=== PATIENT | female | born 1960 | race Caucasian/White ===

== ENCOUNTER 2019-08-08 15:44 | Emergency (ER) | payer OTHER, SELFPAY ==
[2019-08-08 15:58] VITALS: BP 182/69; PULSE 76; RESP 16; TEMP 36.3; O2SAT 98; BMI 23.1
[2019-08-08 17:05] VITALS: BP 176/109; PULSE 67; RESP 12; O2SAT 99
[2019-08-08 17:09] LABS: Bacteria Urine Moderate (10-30); Culture Indicated Urine Cult Not Indicated; RBC Urine 0-1/HPF (0-5/HPF); Squamous Epithelial Cell Urine 5-10 /HPF (0-5/HPF); WBC Urine 0-1/HPF (0-5/HPF)
[2019-08-08 17:10] LABS: Add Manual Diff / Slide Review NO; Basophils Absolute Auto 0 /uL (0-100); Basophils Percent Auto 0.3 % (0-2); Eosinophils Absolute Auto 100 /uL (0-450); Eosinophils Percent Auto 0.9 % (2-4); Hematocrit 40.2 % (36-46); Hemoglobin 14.1 g/dL (12.0-16.0); Lymphocytes Absolute Auto 1300 /uL (1100-4500); Lymphocytes Percent Auto 17.3 % (25-40); Mean Corpuscular HGB Conc 35.1 % (30-36); Mean Corpuscular Hemoglobin 34.4 PG (26-34); Mean Corpuscular Volume 97.9 fL (80-100); Monocytes Absolute Auto 600 /uL (0-900); Monocytes Percent Auto 8.7 % (3-14); Neutrophils Absolute Auto 5400 /uL (1500-7000); Neutrophils Percent Auto 72.8 % (50-75); Platelet Count 129 X10^3/uL (150-400); Red Blood Cell Count 4.11 X10^6/uL (4.0-5.2); Red Cell Distribution Width 13.9 % (11.6-14.8); White Blood Cell Count 7.4 X10^3/uL (4.5-11.0)
--- NOTE | 2019-08-08 17:11 | ED.ABDPAIN ---
HPI - Abdominal Pain <Lorrie Ivey PA-C - Last Filed: 08/08/19 21:09> General Chief Complaint: Abdominal Pain Stated Complaint: ABD PAIN Time Seen by Provider: 08/08/19 16:32 Source: patient Mode of arrival: Ambulatory Limitations: no limitations History of Present Illness HPI narrative: This 58-year-old female comes to ED at the insistence of her due to worsening left lower quadrant pain. she states that she has had intermittent left-sided pain for about a month that just seems to wax and wane on its own, however yesterday towards the end of the day at work this got a lot worse and continued to worsen last night after she got home. She states that she did not eat dinner, did not sleep well due to the pain. She states that it was somewhat less severe this morning and overall is less severe than yesterday but again has worsened somewhat throughout the day. She has not eaten since lunchtime yesterday, states she does not have nausea but does not have an appetite. She has not had any vomiting. She denies any fever, chills, or sweats. She denies any chest pain or dyspnea, states she has some mild chronic cough due to vaping the but that is unchanged. She denies any urinary symptoms or hematuria. She denies any bowel habit change or blood in the stools, thinks her last bowel movement was yesterday. She denies any clear exacerbating or alleviating features. She denies any chronic medical problems aside from untreated HTN as she has not been seen for medical care in a few years. She drinks 2-3 drinks daily, no recent changes. Did have a drink last night. 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 She denies any recent travel or known exposures Related Data Home Medications Medication Instructions Recorded Confirmed No Known Home Medications 08/08/19 08/08/19 Previous Rx's Medication Instructions Recorded amoxicillin-pot clavulanate 1 tab PO BID #20 tab 08/08/19 [Augmentin] Allergies Allergy/AdvReac Type Severity Reaction Status Date / Time No Known Drug Allergies Allergy Unverified 08/08/19 15:02 Review of Systems <Lorrie Ivey PA-C - Last Filed: 08/08/19 21:09> Review of Systems ROS Unobtainable: All systems reviewed & are unremarkable except as noted in HPI and below Patient History <Lorrie Ivey PA-C - Last Filed: 08/08/19 21:09> Medical History (Updated 08/08/19 @ 18:35 by Lorrie Ivey PA-C) HTN (hypertension) (Chronic) Surgical History (Updated 08/08/19 @ 17:37 by Lorrie Ivey PA-C) Status post foot surgery (Resolved) Status post hysterectomy (Resolved) Social History Smoking Status: Current every day smoker tobacco type: cigarettes and vaping alcohol intake frequency: 3 or more drinks per day Substance Use Type: does not use Exam <Lorrie Ivey PA-C - Last Filed: 08/08/19 21:09> Narrative Exam Narrative: GENERAL APPEARANCE: Patient sitting comfortably, in no distress. HEENT: PERRL, EOMI, no scleral icterus, normal oropharynx NECK: Supple LUNGS: Clear to auscultation bilaterally. HEART: Rate and rhythm regular, normal S1 and S2, no S3 or S4. ABDOMEN: Soft, nondistended, bowel sounds present x 4 quadrants, no masses palpable, no hepatosplenomegaly. left lower quadrant markedly tender with deep palpation, no guarding or rebound, mild right lower quadrant tenderness without guarding or rebound. No CVAT EXTREMITIES: No edema, no cyanosis DERMATOLOGIC: No jaundice or exanthem NEUROLOGIC: Alert and oriented with normal speech and coordination Initial Vital Signs Initial Vital Signs: Vital Signs Temperature 97.4 F L 08/08/19 15:58 Pulse Rate 76 08/08/19 15:58 Respiratory Rate 16 08/08/19 15:58 Blood Pressure 182/69 H 08/08/19 15:58 Pulse Oximetry 98 08/08/19 15:58 <Tone Link DO - Last Filed: 08/09/19 08:00> Initial Vital Signs Initial Vital Signs: Vital Signs Temperature 97.4 F L 08/08/19 15:58 Pulse Rate 76 08/08/19 15:58 Respiratory Rate 16 08/08/19 15:58 Blood Pressure 182/69 H 08/08/19 15:58 Pulse Oximetry 98 08/08/19 15:58 Course <Lorrie Ivey PA-C - Last Filed: 08/08/19 21:09> Course Additional Information: Patient has not wanted pain medication while here in the department and does not think she will have any problem taking oral medications and fluids. Appears appropriate for outpatient treatment. She does want to be able to have a drink as she is feeling better and would prefer not to take Flagyl, so was prescribed Augmentin. She agreed to return if any acutely worsening symptoms, otherwise she will call locally tomorrow for referral as she should follow up in the next few days. Discussed that she also needs treatment for her known HTN which can be done through primary care as well. Orders Ordered: Discontinued Medications Sodium Chloride (Normal Saline 0.9%) 1,000 mls @ 1,000 mls/hr IV BOLUS ONE Stop: 08/08/19 18:28 Last Infusion: 08/08/19 19:16 Dose: 0 mls/hr [facility] Admin: 08/08/19 17:58 Dose: 1,000 mls/hr Documented by: [facility] Vital Signs Vital signs: Vital Signs - 8 hr 08/08/19 15:58 08/08/19 17:05 08/08/19 18:04 Temperature 97.4 F L Pulse Rate 76 67 76 Respiratory Rate 16 12 19 Blood Pressure 182/69 H Blood Pressure [Left Arm] 176/109 H 186/104 H Pulse Oximetry 98 99 99 08/08/19 19:06 Temperature Pulse Rate 79 Respiratory Rate 18 Blood Pressure Blood Pressure [Left Arm] 187/101 H Pulse Oximetry 100 <Tone Link DO - Last Filed: 08/09/19 08:00> Orders Ordered: Discontinued Medications Sodium Chloride (Normal Saline 0.9%) 1,000 mls @ 1,000 mls/hr IV BOLUS ONE Stop: 08/08/19 18:28 Last Infusion: 08/08/19 19:16 Dose: 0 mls/hr [facility] Admin: 08/08/19 17:58 Dose: 1,000 mls/hr Documented by: [facility] Vital Signs Vital signs: Vital Signs - 8 hr 08/08/19 15:58 08/08/19 17:05 08/08/19 18:04 Temperature 97.4 F L Pulse Rate 76 67 76 Respiratory Rate 16 12 19 Blood Pressure 182/69 H Blood Pressure [Left Arm] 176/109 H 186/104 H Pulse Oximetry 98 99 99 08/08/19 19:06 Temperature Pulse Rate 79 Respiratory Rate 18 Blood Pressure Blood Pressure [Left Arm] 187/101 H Pulse Oximetry 100 MDM - Abdominal Pain <Lorrie Ivey PA-C - Last Filed: 08/08/19 21:09> Lab Data Attestation: I reviewed the patient's lab results. Result diagrams: 08/08/19 17:00 08/08/19 17:00 Labs: Lab Results 08/08/19 08/08/19 08/08/19 Range/Units 16:03 17:00 17:00 WBC 7.4 (4.5-11.0) X10^3/uL RBC 4.11 (4.0-5.2) X10^6/uL Hgb 14.1 (12.0-16.0) g/dL Hct 40.2 (36-46) % MCV 97.9 (80-100) fL MCH 34.4 H (26-34) PG MCHC 35.1 (30-36) % RDW 13.9 (11.6-14.8) % Plt Count 129 L (150-400) X10^3/uL Neut % (Auto) 72.8 (50-75) % Lymph % (Auto) 17.3 L (25-40) % Florence % (Auto) 8.7 (3-14) % Eos % (Auto) 0.9 L (2-4) % Baso % (Auto) 0.3 (0-2) % Neut # (Auto) 5400 (5526-2837) /uL Lymph # (Auto) 1300 (7661-9813) /uL Florence # (Auto) 600 (0-900) /uL Eos # (Auto) 100 (0-450) /uL Baso # (Auto) 0 (0-100) /uL PT 11.3 (10.1-12.7) SECONDS INR 1.0 (0.9-1.3) APTT 30 (26.4-36.2) SECONDS Sodium (137-145) mmol/L Potassium (3.4-5.1) mmol/L Chloride (98-107) mmol/L Carbon Dioxide (22-32) mmol/L BUN (7-17) mg/dL Creatinine (0.52-1.04) mg/dL Estimated GFR (>60) mL/min BUN/Creatinine Ratio (6-22) Glucose (80-110) mg/dL Calcium (8.4-10.2) mg/dL Total Bilirubin (0.2-1.3) mg/dL AST (14-36) IU/L ALT (<35) IU/L Alkaline Phosphatase (38-126) U/L Total Protein (6.3-8.2) g/dL Albumin (3.5-5.0) g/dL Globulin (1.7-4.1) g/dL Albumin/Globulin Ratio (1.0-2.8) Lipase (23-300) U/L Urine RBC 0-1/hpf (0-5/HPF) Urine WBC 0-1/hpf (0-5/HPF) Ur Squamous Epith Cells 5-10 /hpf H (0-5/HPF) Urine Bacteria Moderate (10-30) H (None) Ur Culture Indicated? Cult not indicated 08/08/19 Range/Units 17:00 WBC (4.5-11.0) X10^3/uL RBC (4.0-5.2) X10^6/uL Hgb (12.0-16.0) g/dL Hct (36-46) % MCV (80-100) fL MCH (26-34) PG MCHC (30-36) % RDW (11.6-14.8) % Plt Count (150-400) X10^3/uL Neut % (Auto) (50-75) % Lymph % (Auto) (25-40) % Florence % (Auto) (3-14) % Eos % (Auto) (2-4) % Baso % (Auto) (0-2) % Neut # (Auto) (0586-2246) /uL Lymph # (Auto) (4826-6943) /uL Florence # (Auto) (0-900) /uL Eos # (Auto) (0-450) /uL Baso # (Auto) (0-100) /uL PT (10.1-12.7) SECONDS INR (0.9-1.3) APTT (26.4-36.2) SECONDS Sodium 139 (137-145) mmol/L Potassium 3.9 (3.4-5.1) mmol/L Chloride 104 (98-107) mmol/L Carbon Dioxide 25 (22-32) mmol/L BUN 10 (7-17) mg/dL Creatinine 0.60 (0.52-1.04) mg/dL Estimated GFR > 60.0 (>60) mL/min BUN/Creatinine Ratio 16.7 (6-22) Glucose 88 (80-110) mg/dL Calcium 9.2 (8.4-10.2) mg/dL Total Bilirubin 0.8 (0.2-1.3) mg/dL AST 31 (14-36) IU/L ALT 31 (<35) IU/L Alkaline Phosphatase 82 (38-126) U/L Total Protein 7.6 (6.3-8.2) g/dL Albumin 4.5 (3.5-5.0) g/dL Globulin 3.1 (1.7-4.1) g/dL Albumin/Globulin Ratio 1.5 (1.0-2.8) Lipase 90 (23-300) U/L Urine RBC (0-5/HPF) Urine WBC (0-5/HPF) Ur Squamous Epith Cells (0-5/HPF) Urine Bacteria (None) Ur Culture Indicated? Point of care testing: Urine Dip Bedside Urine Glucose Negative Bedside Urine Bilirubin - Negative Bedside Urine Ketone - Negative Urine Specific [facility] 1.015 Bedside Urine Occult Blood +/- Bedside Urine pH 6.5 Bedside Urine Protein - Negative Bedside Urine Urobilinogen - Negative Bedside Urine Nitrite - Negative Bedside Urine Leukocytes - Negative Esterase Imaging Data CT scan - abdomen: Radiologist's impression: [place] [id number] CT Scan Report Signed Patient: Shadi Young LMR#: [id number] : 9Acct:[id number] Age/Sex: 58 / FDate of Service: 08/08/19 Loc: ED Accession Number: [id number] Procedure: CT abdomen pelvis w con Ordering Provider: Lorrie Ivey P.A-C PROCEDURE: CT ABDOMEN PELVIS W CON INDICATIONS: LLQ pain/anorexia TECHNIQUE: After the administration of intravenous contrast, 5 mm thick sections acquired from the diaphragm to the symphysis. 5 mm coronal and sagittal reformats were acquired. For radiation dose reduction, the following was used: automated exposure control, adjustment of mA and/or kV according to patient size. COMPARISON: [facility], [place], ABDOMEN SONOGRAM, 03/07/2009, 8:04. FINDINGS: Image quality: Excellent. ABDOMEN: Lung bases: Lung bases are clear. Heart size is normal. Solid organs: Liver is normal in size and enhancement. Subcentimeter presumed liver cysts are seen. Gallbladder demonstrates no significant CT abnormality. Biliary system is non dilated. Pancreas enhances normally. Spleen is normal in size and enhancement. No adrenal nodules. Kidneys demonstrate normal size and enhancement, without hydronephrosis. Peritoneum and bowel: There is moderate wall thickening seen involving the distal descending colon and the sigmoid colon, with mild surrounding inflammatory changes. Diverticula formation can be seen within this region. No findings of perforation or abscess can be seen. The bowel loops otherwise demonstrate normal wall thickness and caliber. An elongated yet not inflamed appendix cannot be seen. Nodes and vessels: No retroperitoneal or mesenteric adenopathy by size criteria. Aorta and inferior vena cava are normal in size. Atherosclerotic calcification is noted. Miscellaneous: No ventral hernias. PELVIS: Genitourinary: Bladder wall thickness is normal. This patient is status post hysterectomy. No adnexal masses are seen. Miscellaneous: No inguinal hernias or adenopathy. Bones: No suspicious bony lesions. No vertebral body compression fractures. Degenerative changes are seen throughout, which are most prominent at the L5-S1 level. IMPRESSION: Distal descending colon and sigmoid colon diverticulitis, without findings of perforation or abscess. Incidental note is made of: Presumed subcentimeter cyst involving the liver Elongated, noninflamed appendix Hysterectomy Focal L5-S1 degenerative change Dictated by: Néstor Foster M.D. on 08/08/2019 at 17:00 Approved by: Néstor Foster M.D. on 08/08/2019 at 17:04 <Tone Link DO - Last Filed: 08/09/19 08:00> Lab Data Labs: Lab Results 08/08/19 08/08/19 08/08/19 Range/Units 16:03 17:00 17:00 WBC 7.4 (4.5-11.0) X10^3/uL RBC 4.11 (4.0-5.2) X10^6/uL Hgb 14.1 (12.0-16.0) g/dL Hct 40.2 (36-46) % MCV 97.9 (80-100) fL MCH 34.4 H (26-34) PG MCHC 35.1 (30-36) % RDW 13.9 (11.6-14.8) % Plt Count 129 L (150-400) X10^3/uL Neut % (Auto) 72.8 (50-75) % Lymph % (Auto) 17.3 L (25-40) % Florence % (Auto) 8.7 (3-14) % Eos % (Auto) 0.9 L (2-4) % Baso % (Auto) 0.3 (0-2) % Neut # (Auto) 5400 (2202-9979) /uL Lymph # (Auto) 1300 (6606-4038) /uL Florence # (Auto) 600 (0-900) /uL Eos # (Auto) 100 (0-450) /uL Baso # (Auto) 0 (0-100) /uL PT 11.3 (10.1-12.7) SECONDS INR 1.0 (0.9-1.3) APTT 30 (26.4-36.2) SECONDS Sodium (137-145) mmol/L Potassium (3.4-5.1) mmol/L Chloride (98-107) mmol/L Carbon Dioxide (22-32) mmol/L BUN (7-17) mg/dL Creatinine (0.52-1.04) mg/dL Estimated GFR (>60) mL/min BUN/Creatinine Ratio (6-22) Glucose (80-110) mg/dL Calcium (8.4-10.2) mg/dL Total Bilirubin (0.2-1.3) mg/dL AST (14-36) IU/L ALT (<35) IU/L Alkaline Phosphatase (38-126) U/L Total Protein (6.3-8.2) g/dL Albumin (3.5-5.0) g/dL Globulin (1.7-4.1) g/dL Albumin/Globulin Ratio (1.0-2.8) Lipase (23-300) U/L Urine RBC 0-1/hpf (0-5/HPF) Urine WBC 0-1/hpf (0-5/HPF) Ur Squamous Epith Cells 5-10 /hpf H (0-5/HPF) Urine Bacteria Moderate (10-30) H (None) Ur Culture Indicated? Cult not indicated 08/08/19 Range/Units 17:00 WBC (4.5-11.0) X10^3/uL RBC (4.0-5.2) X10^6/uL Hgb (12.0-16.0) g/dL Hct (36-46) % MCV (80-100) fL MCH (26-34) PG MCHC (30-36) % RDW (11.6-14.8) % Plt Count (150-400) X10^3/uL Neut % (Auto) (50-75) % Lymph % (Auto) (25-40) % Florence % (Auto) (3-14) % Eos % (Auto) (2-4) % Baso % (Auto) (0-2) % Neut # (Auto) (5592-3458) /uL Lymph # (Auto) (6138-8871) /uL Florence # (Auto) (0-900) /uL Eos # (Auto) (0-450) /uL Baso # (Auto) (0-100) /uL PT (10.1-12.7) SECONDS INR (0.9-1.3) APTT (26.4-36.2) SECONDS Sodium 139 (137-145) mmol/L Potassium 3.9 (3.4-5.1) mmol/L Chloride 104 (98-107) mmol/L Carbon Dioxide 25 (22-32) mmol/L BUN 10 (7-17) mg/dL Creatinine 0.60 (0.52-1.04) mg/dL Estimated GFR > 60.0 (>60) mL/min BUN/Creatinine Ratio 16.7 (6-22) Glucose 88 (80-110) mg/dL Calcium 9.2 (8.4-10.2) mg/dL Total Bilirubin 0.8 (0.2-1.3) mg/dL AST 31 (14-36) IU/L ALT 31 (<35) IU/L Alkaline Phosphatase 82 (38-126) U/L Total Protein 7.6 (6.3-8.2) g/dL Albumin 4.5 (3.5-5.0) g/dL Globulin 3.1 (1.7-4.1) g/dL Albumin/Globulin Ratio 1.5 (1.0-2.8) Lipase 90 (23-300) U/L Urine RBC (0-5/HPF) Urine WBC (0-5/HPF) Ur Squamous Epith Cells (0-5/HPF) Urine Bacteria (None) Ur Culture Indicated? Point of care testing: Urine Dip Bedside Urine Glucose Negative Bedside Urine Bilirubin - Negative Bedside Urine Ketone - Negative Urine Specific [facility] 1.015 Bedside Urine Occult Blood +/- Bedside Urine pH 6.5 Bedside Urine Protein - Negative Bedside Urine Urobilinogen - Negative Bedside Urine Nitrite - Negative Bedside Urine Leukocytes - Negative Esterase Discharge Plan Departure Patient Disposition: Home Clinical Impression: Diverticulitis Discharge Date/Time: 08/08/19 19:18 Instructions: DI for Diverticulitis Activity Restrictions/Additional Instructions: Please pick and shovel man the antibiotic and start right away. You can take Tylenol as needed for pain. You can have plenty of clear fluids and broth, and as you start to feel little bit better, add bland foods such as white rice, plain white toast, applesauce, bananas. You can gradually add more bland foods such as chicken noodle soup or plain pasta, or baked potato without the skin as you start feeling better. Keep alcohol to a minimum. As we talked about, you must return to the ED if you have any acutely worsening symptoms or new symptoms such as fever or are not able to keep down oral medicines. Otherwise, please call the hospital health human resources support specialist 1st thing in the morning, at [phone] and let them know we would like to have you follow-up with a new primary care provider this week for your abdominal pain. if they are not able to get you an appointment you may also wish to call [facility] clinic at [phone] as sometimes they are able to help with quicker appointments. Prescriptions: New amoxicillin-pot clavulanate [Augmentin] 875-125 mg tablet 1 tab PO BID Qty: 20 RF: 0 No Action No Known Home Medications RF: 0 Stand Alone Forms: Work Release Note <Tone Link, DO - Last Filed: 08/09/19 08:00> Sign Out Provider Sign Out Attestation: Dr Link Co-Sign Statement: I was available for consultation during this patient's emergency department visit. This chart is signed by myself for administrative purposes only. I did not have direct contact with this patient during this visit. They were seen independently by the APC.
[2019-08-08 17:19] LABS: Prothrombin Time 11.3 SECONDS (10.1-12.7)
[2019-08-08 17:22] LABS: PTT Partial Thromboplastin Tim 30 SECONDS (26.4-36.2)
[2019-08-08 17:23] LABS: Alanine Aminotransferase 31 IU/L (<35); Albumin 4.5 g/dL (3.5-5.0); Albumin Globulin Ratio 1.5 (1.0-2.8); Alkaline Phosphatase 82 U/L (38-126); Aspartate Aminotransferase 31 IU/L (14-36); BUN Creatinine Ratio 16.7 (6-22); Bilirubin Total 0.8 mg/dL (0.2-1.3); Blood Urea Nitrogen 10 mg/dL (7-17); Calcium 9.2 mg/dL (8.4-10.2); Carbon Dioxide 25 mmol/L (22-32); Chloride 104 mmol/L (98-107); Estimated Glomerular Filt Rate > 60.0 mL/min (>60); Globulin 3.1 g/dL (1.7-4.1); Glucose 88 mg/dL (80-110); HEMOLYSIS < 15 (0-50); Lipase 90 U/L (23-300); Potassium 3.9 mmol/L (3.4-5.1); Sodium 139 mmol/L (137-145); Total Protein 7.6 g/dL (6.3-8.2)
--- NOTE | 2019-08-08 17:29 | DI.CT.S_ITS ---
PROCEDURE: CT ABDOMEN PELVIS W CON INDICATIONS: LLQ pain/anorexia TECHNIQUE: After the administration of intravenous contrast, 5 mm thick sections acquired from the diaphragm to the symphysis. 5 mm coronal and sagittal reformats were acquired. For radiation dose reduction, the following was used: automated exposure control, adjustment of mA and/or kV according to patient size. COMPARISON: [facility], [place], ABDOMEN SONOGRAM, 03/07/2009, 8:04. FINDINGS: Image quality: Excellent. ABDOMEN: Lung bases: Lung bases are clear. Heart size is normal. Solid organs: Liver is normal in size and enhancement. Subcentimeter presumed liver cysts are seen. Gallbladder demonstrates no significant CT abnormality. Biliary system is non dilated. Pancreas enhances normally. Spleen is normal in size and enhancement. No adrenal nodules. Kidneys demonstrate normal size and enhancement, without hydronephrosis. Peritoneum and bowel: There is moderate wall thickening seen involving the distal descending colon and the sigmoid colon, with mild surrounding inflammatory changes. Diverticula formation can be seen within this region. No findings of perforation or abscess can be seen. The bowel loops otherwise demonstrate normal wall thickness and caliber. An elongated yet not inflamed appendix cannot be seen. Nodes and vessels: No retroperitoneal or mesenteric adenopathy by size criteria. Aorta and inferior vena cava are normal in size. Atherosclerotic calcification is noted. Miscellaneous: No ventral hernias. PELVIS: Genitourinary: Bladder wall thickness is normal. This patient is status post hysterectomy. No adnexal masses are seen. Miscellaneous: No inguinal hernias or adenopathy. Bones: No suspicious bony lesions. No vertebral body compression fractures. Degenerative changes are seen throughout, which are most prominent at the L5-S1 level. IMPRESSION: Distal descending colon and sigmoid colon diverticulitis, without findings of perforation or abscess. Incidental note is made of: Presumed subcentimeter cyst involving the liver Elongated, noninflamed appendix Hysterectomy Focal L5-S1 degenerative change Dictated by: Néstor Foster M.D. on 08/08/2019 at 17:00 Approved by: Néstor Foster M.D. on 08/08/2019 at 17:04
[2019-08-08] MEDS: SODIUM CHLORIDE 0.9% 1,000 ML 1000 ML IV (17:58)
[2019-08-08 18:04] VITALS: BP 186/104; PULSE 76; RESP 19; O2SAT 99
[2019-08-08 19:06] VITALS: BP 187/101; PULSE 79; RESP 18; O2SAT 100
== END 2019-08-08 19:18 | disposition home or self-care (01) ==
PROVIDERS: Emergency Medicine; Emergency Provider Internal Medicine
DX: K57.92 Diverticulitis of intestine, part unspecified, without perforation or abscess without bleeding (principal)
CPT/HCPCS: 36415; 74177; 80053; 81003; 81015; 83690; 85025; 85610; 85730; 96360; 99283; 99285

== ENCOUNTER → 2019-08-29 11:35 | Outpatient (CLI) | payer OTHER, SELFPAY ==
[2019-08-29 12:01] LABS: Add Manual Diff / Slide Review NO; Basophils Absolute Auto 0 /uL (0-100); Basophils Percent Auto 0.7 % (0-2); Eosinophils Absolute Auto 100 /uL (0-450); Eosinophils Percent Auto 1.6 % (2-4); Hematocrit 41.5 % (36-46); Hemoglobin 14.2 g/dL (12.0-16.0); Lymphocytes Absolute Auto 900 /uL (1100-4500); Lymphocytes Percent Auto 22.1 % (25-40); Mean Corpuscular HGB Conc 34.2 % (30-36); Mean Corpuscular Hemoglobin 34.2 PG (26-34); Monocytes Absolute Auto 400 /uL (0-900); Monocytes Percent Auto 9.5 % (3-14); Neutrophils Absolute Auto 2700 /uL (1500-7000); Neutrophils Percent Auto 66.1 % (50-75); Platelet Count 147 X10^3/uL (150-400); Red Blood Cell Count 4.15 X10^6/uL (4.0-5.2); Red Cell Distribution Width 13.7 % (11.6-14.8); White Blood Cell Count 4.1 X10^3/uL (4.5-11.0)
[2019-08-29 12:14] LABS: Alanine Aminotransferase 26 IU/L (<35); Albumin 4.6 g/dL (3.5-5.0); Albumin Globulin Ratio 1.5 (1.0-2.8); Alkaline Phosphatase 74 U/L (38-126); Aspartate Aminotransferase 36 IU/L (14-36); BUN Creatinine Ratio 23.3 (6-22); Bilirubin Total 0.6 mg/dL (0.2-1.3); Blood Urea Nitrogen 14 mg/dL (7-17); Calcium 9.4 mg/dL (8.4-10.2); Carbon Dioxide 28 mmol/L (22-32); Chloride 104 mmol/L (98-107); Cholesterol 266 mg/dL (140-199); Estimated Glomerular Filt Rate > 60.0 mL/min (>60); Glucose 82 mg/dL (80-110); HDL Cholesterol 91 mg/dL (40-60); HEMOLYSIS < 15 (0-50); LDL Cholesterol Calculated 153 mg/dL (<100); Potassium 4.1 mmol/L (3.4-5.1); Sodium 140 mmol/L (137-145); Total Protein 7.6 g/dL (6.3-8.2); Triglycerides 109 mg/dL (35-150)
[2019-08-29 13:44] LABS: TSH w/ Reflex to FT4 1.08 uIU/mL (0.47-4.68)
[2019-08-29 15:18] LABS: Vitamin D 25 Hydroxy (D3) < 12.8 ng/mL (30.0-100.0)
== END ==
PROVIDERS: PCP Family Medicine; Visit Provider Family Medicine
DX: Z13.29 Encounter for screening for other suspected endocrine disorder (principal); E55.9 Vitamin D deficiency, unspecified; I10 Essential (primary) hypertension
CPT/HCPCS: 36415; 80053; 80061; 82306; 84443; 85025

== ENCOUNTER → 2020-02-20 08:45 | Outpatient (CLI) | payer BC, SELFPAY ==
--- NOTE | 2020-02-20 08:46 | DI.NM.S_ITS ---
PROCEDURE: NM CÉSAR PERF SPECT REST & STR Rest and exercise myocardial perfusion SPECT with gated imaging and ejection fraction RADIOPHARMACEUTICAL: 11.5 mCi Tc-99m sestamibi IV at rest and 25.8 mCi Tc-99m sestamibi IV at peak exercise. A one day-protocol was performed. INDICATIONS: Chest pain TECHNIQUE: Radiopharmaceutical was injected at peak stress test, and also at rest. SPECT images were obtained. SPECT myocardial perfusion images were displayed in short axis, horizontal long axis, and vertical long axis views. Gated images were reviewed using fypio software. COMPARISON: None. CARDIAC STRESS: A standard Jayy treadmill exercise tolerance test was performed by the patient under the supervision of an attending staff. The patient exercised for 2 minutes and 44 seconds; functional aerobic impairment (ANKIT) is +50%. Hemodynamic data: There is normal heart rate response to exercise stress. Hypertension at rest (BP 170/104mmHg) and hypertensive response to exercise (max BP 200/120mmHg). Patient achieved 106% of maximum predicted heart rate at peak exercise. Symptoms: Patient denied chest pain during exercise. EKG: Resting ECG shows sinus rhythm with mild horizontal ST depressions in the inferior leads and non-specific ST changes in the anterolateral leads. No diagnostic EKG changes of ischemia with exercise; no ectopy. FINDINGS: Raw data: There is good myocardial labeling by radiotracer. No significant motion artifacts. Hisb-zx-pzoza ratio is 0.34 (normal is less than 0.38 for sestamibi tracer, and less than 0.50 for thallium tracer). Left ventricle function: Gated images demonstrate normal left ventricle wall thickening. No segmental wall motion abnormality. No transient ischemic dilation; TID is 0.76 (normal less than 1.3). The left ventricle resting end-diastolic volume is 77 mL. Left ventricle stress ejection fraction is 83%; normal values are above 45%. Myocardial perfusion: There is normal distribution of activity in the left and right ventricular myocardium. No fixed or reversible perfusion defects. IMPRESSION: Low risk, normal treadmill nuclear stress study. Hypertension at rest and hypertensive response to exercise. 1) No perfusion evidence of ischemia or infarction. 2) Normal left ventricular size, wall motion, and systolic function (EF post stress 83%). 3) No ECG evidence of ischemia with exercise. 4) No angina during the study. 5) Severely reduced exercise tolerance (4.6 METs, ANKIT +50%). Target heart rate achieved. 6) Hypertension at rest (BP 170/104mmHg) and hypertensive response to exercise (max BP 200/120mmHg). 7) No prior nuclear stress test available for comparison. Dictated by: Brody Gonzalez MD on 02/20/2020 at 16:57 Approved by: Brody Gonzalez MD on 02/20/2020 at 17:01
--- NOTE | 2020-02-20 13:54 | P.PCN_ITS ---
Cardiac Stress Test Report Referral & Results Date Patient Seen: 02/20/20 Time Patient Seen: 13:45 Requesting provider: Christie Majano Indication: Chest pain Rest ECG: Normal sinus rhythm Procedure Note: Today following both written and verbal informed consent the patient was exercised according to a standard Jayy protocol patient went for a total of 2 minutes 44 seconds achieving a maximum heart rate of 169 maximum systolic blood pressure of 200. This is approximately 4.6 METs. Exercise was terminated at this point because of fatigue. Patient was also given Cardiolite through a previously started Hep-Lock IV by the nuclear supervising operator approximately 1 minute prior to the cessation of exercise. Exaggerated heart rate and blood pressure response to exercise. High heart rate and blood pressure at baseline. Slow hemodynamic recovery at rest. No change in rhythm during exercise. Shortness of breath on exertion, but no other signs or symptoms of angina. ST depression in inferior and septal leads, resolving slowly with rest. Marked aerobic impairment (ANKIT +50%). Impression: Abnormal test with significant risk of ischemia. Will await perfusion imaging. Pulmonary disease likely contributing to poor performance. Please note: Actual ECG tracings can be found in the PACS system.
== END ==
PROVIDERS: PCP Family Medicine; Referring Provider Family Medicine; Visit Provider Registered Nurse
DX: R07.89 Other chest pain (principal)
CPT/HCPCS: 78452; 93016; 93017; 93018; A9502

== ENCOUNTER → 2020-03-26 14:50 | Outpatient (CLI) | payer BC, SELFPAY ==
[2020-03-26 20:43] LABS: Cholesterol 267 mg/dL (140-199); HDL Cholesterol 85 mg/dL (40-60); LDL Cholesterol Calculated 165 mg/dL (<100); Triglycerides 87 mg/dL (35-150)
== END ==
PROVIDERS: PCP Family Medicine; Referring Provider Family Medicine; Visit Provider Family Medicine
DX: E78.5 Hyperlipidemia, unspecified (principal)
CPT/HCPCS: 36415; 80061

== ENCOUNTER → 2020-10-03 12:21 | Outpatient (CLI) | payer BC, SELFPAY ==
[2020-10-03 12:52] LABS: Add Manual Diff / Slide Review NO; Basophils Absolute Auto 0 /uL (0-100); Eosinophils Absolute Auto 100 /uL (0-450); Eosinophils Percent Auto 2.7 % (2-4); Hemoglobin 14.5 g/dL (12.0-16.0); Lymphocytes Absolute Auto 1200 /uL (1100-4500); Mean Corpuscular HGB Conc 34.5 % (30-36); Mean Corpuscular Hemoglobin 34.6 PG (26-34); Mean Corpuscular Volume 100.3 fL (80-100); Monocytes Absolute Auto 300 /uL (0-900); Monocytes Percent Auto 8.5 % (3-14); Neutrophils Absolute Auto 2100 /uL (1500-7000); Neutrophils Percent Auto 55.8 % (50-75); Platelet Count 102 X10^3/uL (150-400); Red Blood Cell Count 4.19 X10^6/uL (4.0-5.2); Red Cell Distribution Width 14.2 % (11.6-14.8); White Blood Cell Count 3.7 X10^3/uL (4.5-11.0)
[2020-10-03 13:17] LABS: Alanine Aminotransferase 38 IU/L (<35); Albumin 4.6 g/dL (3.5-5.0); Albumin Globulin Ratio 1.5 (1.0-2.8); Alkaline Phosphatase 83 U/L (38-126); Aspartate Aminotransferase 50 IU/L (14-36); BUN Creatinine Ratio 19.7 (6-22); Bilirubin Total 0.9 mg/dL (0.2-1.3); Blood Urea Nitrogen 15 mg/dL (7-17); Calcium 9.9 mg/dL (8.4-10.2); Carbon Dioxide 27 mmol/L (22-32); Chloride 104 mmol/L (98-107); Cholesterol 241 mg/dL (140-199); Estimated Glomerular Filt Rate > 60.0 mL/min (>60); Globulin 3.1 g/dL (1.7-4.1); Glucose 92 mg/dL (80-110); HEMOLYSIS < 15 (0-50); Potassium 4.2 mmol/L (3.4-5.1); Sodium 136 mmol/L (137-145); Total Protein 7.7 g/dL (6.3-8.2)
[2020-10-03 13:41] LABS: Free T3, Triiodothyronine Free 4.87 pg/mL (2.77-5.27); Free T4, Direct Thyroxine 1.24 ng/dL (0.78-2.19)
[2020-10-03 13:54] LABS: Thyroid Stimulating Hormone 1.46 uIU/mL (0.47-4.68)
[2020-10-03 15:43] LABS: Vitamin D 25 Hydroxy (D3) 54.6 ng/mL (30.0-100.0)
== END ==
PROVIDERS: PCP Family Medicine; Referring Provider Family Medicine; Visit Provider Family Medicine
DX: E56.9 Vitamin deficiency, unspecified (principal); E78.5 Hyperlipidemia, unspecified; I10 Essential (primary) hypertension
CPT/HCPCS: 36415; 80053; 82306; 82465; 84439; 84443; 84481; 85025

== ENCOUNTER → 2020-10-18 15:03 | Outpatient (CLI) | payer BC, SELFPAY ==
[2020-10-18 16:32] LABS: Cholesterol 304 mg/dL (140-199); HDL Cholesterol 108 mg/dL (40-60); LDL Cholesterol Calculated 171 mg/dL (<100); Triglycerides 125 mg/dL (35-150)
== END ==
PROVIDERS: PCP Family Medicine; Referring Provider Family Medicine; Visit Provider Family Medicine
DX: E78.5 Hyperlipidemia, unspecified (principal); I10 Essential (primary) hypertension
CPT/HCPCS: 36415; 80061

== ENCOUNTER → 2020-11-05 14:16 | Outpatient (CLI) | payer BC, SELFPAY ==
--- NOTE | 2020-11-05 14:18 | DI.RAD.S_ITS ---
PROCEDURE: XR LUMBAR SPINE 2-3V INDICATIONS: lower back pain TECHNIQUE: 3 views of the lumbar spine were acquired. COMPARISON: [facility], CR, XR HIP W PEL IF DONE RT 2V, 11/05/2020, 14:25. [facility], CT, CT ABDOMEN PELVIS W CON, 08/08/2019, 17:35. FINDINGS: Bones: 5 [id number]-[id number]-[id number] vertebrae are present. There is normal bony alignment. No vertebral body compression fractures. Probably old fracture of sacrum. No suspicious bony lesions. Mild degenerative disc disease scattered in lumbar spine. Lyijgmbd-qn-[id number] facet arthropathy at L5-S1. Soft tissues: Overlying bowel gas pattern is normal. Extensive aortic and iliac artery calcifications. IMPRESSION: 1. Possible old healed sacral fracture. 2. Mild degenerative disc disease. 3. Txzgbdoi-qs-[id number] facet arthropathy. 4. Severe atherosclerosis. Dictated by: Sonia Hernandez M.D. on 11/05/2020 at 15:55 Approved by: Sonia Hernandez M.D. on 11/05/2020 at 15:59
--- NOTE | 2020-11-05 14:18 | DI.RAD.S_ITS ---
PROCEDURE: XR HIP W PEL IF DONE RT 2V INDICATIONS: lower back pain TECHNIQUE: AP pelvis with lateral view(s) of the right hip(s). COMPARISON: None. FINDINGS: Bones: No fractures or dislocations. Pelvic ring appears intact. No suspicious bony lesions. 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 Degenerative disc and facet disease in the lower lumbar spine. Soft tissues: The visualized bowel gas pattern is normal. There are multiple pelvic phleboliths. 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 Dictated by: Sonia Hernandez M.D. on 11/05/2020 at 17:26 Approved by: Sonia Hernandez M.D. on 11/05/2020 at 17:27
== END ==
PROVIDERS: PCP Family Medicine; Referring Provider Registered Nurse; Visit Provider Registered Nurse
DX: M54.5 Low back pain (principal); M25.551 Pain in right hip; M16.0 Bilateral primary osteoarthritis of hip; M51.36 Other intervertebral disc degeneration, lumbar region; M47.817 Spondylosis without myelopathy or radiculopathy, lumbosacral region; I70.0 Atherosclerosis of aorta; M46.1 Sacroiliitis, not elsewhere classified
CPT/HCPCS: 72100; 73502

== ENCOUNTER → 2020-11-11 15:15 | Outpatient (CLI) | payer BC, SELFPAY | PROVIDERS: PCP Family Medicine; Visit Provider Nurse Practitioner | DX: L02.91 Cutaneous abscess, unspecified (principal) | CPT/HCPCS: 87070; 87075; 87077; 87205 ==

== ENCOUNTER → 2020-12-21 13:56 | Outpatient (CLI) | payer BC, SELFPAY ==
[2020-12-21 14:37] LABS: Appearance Urine UA CLOUDY; Bilirubin Urine UA NEGATIVE (NEGATIVE); Color Urine UA YELLOW; Glucose Urine UA NEGATIVE (Negative); Ketones Urine UA NEGATIVE (NEGATIVE); Leukocyte Esterase Urine UA 3+ (NEGATIVE); Nitrite Urine UA NEGATIVE (Negative); Occult Blood Urine UA TRACE-LYSED (Negative); Protein Urine UA NEGATIVE (Negative); Urobilinogen Urine UA 0.2 E.U./dL (0.2)
[2020-12-21 14:56] LABS: RBC Urine 5-10/HPF (0-5/HPF)
[2020-12-21 14:57] LABS: Bacteria Urine Many (>30); Culture Indicated Urine Specimen Cultured; Squamous Epithelial Cell Urine 1-5 /HPF (0-5/HPF); WBC Urine 30-100/HPF (0-5/HPF)
== END ==
PROVIDERS: PCP Family Medicine; Referring Provider Family Medicine; Visit Provider Family Medicine
DX: R30.0 Dysuria (principal)
CPT/HCPCS: 81001; 87077; 87086; 87186

== ENCOUNTER 2021-07-22 14:35 | Emergency (ER) | payer OTHER, SELFPAY ==
[2021-07-22 14:46] VITALS: BP 255/130; PULSE 89; RESP 18; TEMP 36.6; O2SAT 97
--- NOTE | 2021-07-22 14:50 | DI.RAD.S_ITS ---
PROCEDURE: XR CHEST 1V INDICATIONS: Chest pain TECHNIQUE: One view of the chest was acquired. COMPARISON: None. FINDINGS: Surgical changes and devices: None. Lungs and pleura: Lungs are clear. No pleural effusions or pneumothorax. Mediastinum: Mediastinal contours appear normal. Heart size is normal. Bones and chest wall: No suspicious bony lesions. Overlying soft tissues appear unremarkable. IMPRESSION: No acute cardiopulmonary process demonstrated radiographically. Dictated by: Osmar Calderón M.D. on 07/22/2021 at 16:47 Approved by: Osmar Calderón M.D. on 07/22/2021 at 16:48
[2021-07-22 15:11] LABS: Add Manual Diff / Slide Review NO; Basophils Absolute Auto 100 /uL (0-100); Basophils Percent Auto 1.2 % (0-2); Eosinophils Absolute Auto 0 /uL (0-450); Eosinophils Percent Auto 0.8 % (2-4); Hematocrit 41.9 % (36-46); Hemoglobin 14.7 g/dL (12.0-16.0); Lymphocytes Absolute Auto 1100 /uL (1100-4500); Lymphocytes Percent Auto 25.8 % (25-40); Mean Corpuscular Hemoglobin 36.2 PG (26-34); Mean Corpuscular Volume 103.2 fL (80-100); Monocytes Absolute Auto 400 /uL (0-900); Monocytes Percent Auto 8.4 % (3-14); Neutrophils Absolute Auto 2700 /uL (1500-7000); Neutrophils Percent Auto 63.8 % (50-75); Platelet Count 118 X10^3/uL (150-400); Red Blood Cell Count 4.05 X10^6/uL (4.0-5.2); Red Cell Distribution Width 15.2 % (11.6-14.8); White Blood Cell Count 4.3 X10^3/uL (4.5-11.0)
[2021-07-22 15:19] LABS: Alanine Aminotransferase 48 IU/L (<35); Albumin 4.8 g/dL (3.5-5.0); Albumin Globulin Ratio 1.5 (1.0-2.8); Alkaline Phosphatase 108 U/L (38-126); Aspartate Aminotransferase 79 IU/L (14-36); BUN Creatinine Ratio 16.9 (6-22); Bilirubin Total 0.8 mg/dL (0.2-1.3); Blood Urea Nitrogen 12 mg/dL (7-17); Calcium 10.1 mg/dL (8.4-10.2); Carbon Dioxide 25 mmol/L (22-32); Chloride 103 mmol/L (98-107); Creatine Kinase 38 U/L (30-135); Estimated Glomerular Filt Rate > 60.0 mL/min (>60); Globulin 3.2 g/dL (1.7-4.1); Glucose 82 mg/dL (80-110); HEMOLYSIS < 15 (0-50); Lipase 127 U/L (23-300); Potassium 4.3 mmol/L (3.4-5.1); Sodium 138 mmol/L (137-145)
[2021-07-22 15:31] LABS: Troponin I 0.031 ng/mL (0.01-0.034)
[2021-07-22 16:26] VITALS: BP 233/111; PULSE 77
[2021-07-22] MEDS: LABETALOL 20 MG/4 ML SYRINGE 10 MG IV (16:26)
[2021-07-22 17:00] VITALS: BP 212/105; PULSE 66
[2021-07-22] MEDS: lisinopriL 20 MG TABLET 40 MG PO (17:00)
[2021-07-22] MEDS: PROPRANOLOL ER 60 MG CAPSULE 120 MG PO (17:01)
[2021-07-22 17:44] LABS: Troponin I 0.032 ng/mL (0.01-0.034)
--- NOTE | 2021-07-22 18:33 | ED_ITS ---
HPI - General Adult General Chief complaint: Hypertension Stated complaint: Blood high very high Time Seen by Provider: 07/22/21 18:01 Source: patient Mode of arrival: Ambulatory History of Present Illness HPI narrative: Patient is a 60-year-old female who is here for evaluation of high blood pressure. She has a history of high blood pressure. She ran out of her medications a couple days ago however she states that prior to that it was somewhat sporadic without off and she was taking the medicines. She recently was at a doctor's appointment and a blood pressure was taken and it was elevated. She was told to follow-up with her primary doctor. That was a couple days ago. Today she contacted her primary doctor in order to get a refill of her medications and she was told by the nursing staff there to come to the emergency department. She has no headache. No vision changes. No sore throat. No chest pain. No shortness of breath. No abdominal pain. No nausea vomiting. No lower extremity swelling. No other musculoskeletal complaints. No urinary symptoms Related Data Home Medications Medication Instructions Recorded Confirmed cholecalciferol (vitamin D3) 50 100 mcg PO DAILY cap 10/04/20 01/10/21 mcg (2,000 unit) capsule Previous Rx's Medication Instructions Recorded hydrochlorothiazide 12.5 mg tablet 12.5 mg PO DAILY #30 tab 04/10/20 propranolol 120 mg capsule,24 120 mg PO BID #180 cap 10/04/20 hr,extended release atorvastatin 20 mg tablet 20 mg PO BEDTIME #90 tab 11/22/20 betamethasone dipropionate 0.05 % 1 applic TOP BID PRN #45 gram 01/10/21 topical cream nitrofurantoin macrocrystal 100 mg 100 mg PO BID #10 cap 01/21/21 capsule hydroxyzine HCl 10 mg tablet 10 mg PO TID PRN #90 tab 04/18/21 sertraline 25 mg tablet See Rx Instructions .ROUTE 05/19/21 .COMPLEX #60 tab atorvastatin 20 mg tablet 20 mg PO BEDTIME #30 tab 07/22/21 hydrochlorothiazide 12.5 mg tablet 12.5 mg PO DAILY #30 tab 07/22/21 lisinopril 40 mg tablet 40 mg PO DAILY #30 tab 07/22/21 lisinopril 40 mg tablet 40 mg PO DAILY #30 tab 07/22/21 Allergies Allergy/AdvReac Type Severity Reaction Status Date / Time bupropion Allergy Intermediate hives Verified 01/10/21 10:10 doxycycline AdvReac Intermediate diarrhea Verified 01/10/21 10:10 Review of Systems Constitutional Constitutional: Denies fever(s) and Denies headache(s) Eyes Eyes: Denies change in vision ENT Ears, Nose, Mouth, and Throat: Reports system reviewed and no additional complaints, except as documented, Reports as per HPI and Denies headache(s) Cardiovascular Cardiovascular: Reports as per HPI and Reports system reviewed and no additional complaints, except as documented Respiratory Respiratory: Reports as per HPI and Reports system reviewed and no additional complaints, except as documented Gastrointestinal Gastrointestinal: Reports as per HPI and Reports system reviewed and no additional complaints, except as documented Genitourinary Genitourinary: Reports system reviewed and no additional complaints, except as documented and Reports as per HPI Musculoskeletal Musculoskeletal: Reports system reviewed and no additional complaints, except as documented and Reports as per HPI Integumentary/Breasts Skin/Breast: Reports system reviewed and no additional complaints, except as documented and Reports as per HPI Neurologic Neurologic: Reports system reviewed and no additional complaints, except as documented, Reports as per HPI and Denies headache(s) Psychiatric Psychiatric: Reports system reviewed and no additional complaints, except as documented Endocrine Endocrine: Reports system reviewed and no additional complaints, except as documented Hematologic/Lymphatic Hematologic/Lymphatic: Reports system reviewed and no additional complaints, except as documented On Anticoagulants: No Allergic/Immunologic Allergic/Immunologic: Reports system reviewed and no additional complaints, except as documented Patient History Medical History Anxiety Anxiety and depression Constipation Diverticulosis Eczema (~2018) Foot pain (~1981) Hemorrhoid HTN (hypertension) Hyperlipidemia Low back pain Needs smoking cessation education Osteoarthritis Pelvic somatic dysfunction Seborrheic dermatitis of scalp Segmental and somatic dysfunction of abdomen and other regions Somatic dysfunction of spine, sacral Tobacco abuse disorder Tremor, anxiety related Vision disorder Vitamin deficiency Surgical History Anesthesia History of bunionectomy (~1981) History of carpal tunnel release (~1997) Status post foot surgery Status post hysterectomy (~1989) Family History Mother Cancer Brother Colon cancer Brother Liver cancer Social History Smoking Status: Current every day smoker Tobacco: How many years used: 50 quit status: not considering quitting second hand exposure: No alcohol intake: current substance use type: does not use and former substance user Smoking Status: Current every day smoker tobacco type: cigarettes and vaping alcohol intake frequency: 3 or more drinks per day Substance Use Type: does not use Exam Initial Vital Signs Initial Vital Signs: Vital Signs Temperature 97.8 F 07/22/21 14:46 Pulse Rate 89 07/22/21 14:46 Respiratory Rate 18 07/22/21 14:46 Blood Pressure 255/130 H 07/22/21 14:46 Pulse Oximetry 97 07/22/21 14:46 Const General: cooperative, healthy appearing, comfortable, well developed, well groomed and No acute distress Limitations: mental status not altered HENWV Head: normal to inspection and normocephalic Eyes General: appearance normal, both eyes and all related structures Neck Neck: normal visual inspection and no meningeal signs Chest Chest: normal inspection of the chest Resp Effort & Inspection: normal respiratory effort Auscultation: clear to auscultation bilaterally Cardio Rate: regular rate Rhythm: regular rhythm GI Inspection: normal to inspection and non-distended Palpation: soft Back/Spine/Pelvis Back: normal to inspection Skin General: no rashes or lesions noted Neuro General: patient alert, patient awake, patient oriented x3 and moves all extremities Extrem General: normal to inspection and capillary refill normal Psych Appearance: grossly normal and well kempt Course Orders Ordered: Discontinued Medications Hydralazine HCl (Hydralazine 20 Mg/Ml Vial) 10 mg IV NOW ONE Stop: 07/22/21 18:35 Last Admin: 07/22/21 19:07 Dose: 10 mg Documented by: MARGIE Hydrochlorothiazide (Hydrochlorothiazide 25 Mg Tablet) 25 mg PO NOW ONE Stop: 07/22/21 18:35 Last Admin: 07/22/21 19:07 Dose: 25 mg Documented by: MARGIE Labetalol HCl (Labetalol 20 Mg/4 Ml Syringe) 10 mg IV NOW ONE Stop: 07/22/21 16:18 Last Admin: 07/22/21 16:26 Dose: 10 mg Documented by: MARGIE Lisinopril (Lisinopril 20 Mg Tablet) 40 mg PO NOW ONE Stop: 07/22/21 17:01 Last Admin: 07/22/21 17:00 Dose: 40 mg Documented by: MARGIE Propranolol HCl (Propranolol Er 60 Mg Capsule) 120 mg PO NOW ONE Stop: 07/22/21 17:01 Last Admin: 07/22/21 17:01 Dose: 120 mg Documented by: MARGIE Vital Signs Vital signs: Vital Signs - 8 hr 07/22/21 19:07 07/22/21 20:37 Pulse Rate 64 64 Respiratory Rate 18 Blood Pressure 215/100 H 194/98 H Pulse Oximetry 98 Medical Decision Making Lab Data Lab results reviewed: Yes I reviewed the patient's lab results. Result diagrams: 07/22/21 14:56 07/22/21 14:56 Labs: Lab Results 07/22/21 07/22/21 07/22/21 Range/Units 14:56 14:56 17:01 WBC 4.3 L (4.5-11.0) X10^3/uL RBC 4.05 (4.0-5.2) X10^6/uL Hgb 14.7 (12.0-16.0) g/dL Hct 41.9 (36-46) % MCV 103.2 H (80-100) fL MCH 36.2 H (26-34) PG MCHC 35.0 (30-36) % RDW 15.2 H (11.6-14.8) % Plt Count 118 L (150-400) X10^3/uL Neut % (Auto) 63.8 (50-75) % Lymph % (Auto) 25.8 (25-40) % [place] % (Auto) 8.4 (3-14) % Eos % (Auto) 0.8 L (2-4) % Baso % (Auto) 1.2 (0-2) % Neut # (Auto) 2700 (8611-7815) /uL Lymph # (Auto) 1100 (1089-5663) /uL [place] # (Auto) 400 (0-900) /uL Eos # (Auto) 0 (0-450) /uL Baso # (Auto) 100 (0-100) /uL Sodium 138 (137-145) mmol/L Potassium 4.3 (3.4-5.1) mmol/L Chloride 103 (98-107) mmol/L Carbon Dioxide 25 (22-32) mmol/L BUN 12 (7-17) mg/dL Creatinine 0.71 (0.52-1.04) mg/dL Estimated GFR > 60.0 (>60) mL/min BUN/Creatinine Ratio 16.9 (6-22) Glucose 82 (80-110) mg/dL Calcium 10.1 (8.4-10.2) mg/dL Total Bilirubin 0.8 (0.2-1.3) mg/dL AST 79 H (14-36) IU/L ALT 48 H (<35) IU/L Alkaline Phosphatase 108 (38-126) U/L Total Creatine Kinase 38 (30-135) U/L CK-MB (CK-2) TNP CK-MB (CK-2) Rel Index TNP Troponin I 0.031 0.032 (0.01-0.034) ng/mL Total Protein 8.0 (6.3-8.2) g/dL Albumin 4.8 (3.5-5.0) g/dL Globulin 3.2 (1.7-4.1) g/dL Albumin/Globulin Ratio 1.5 (1.0-2.8) Lipase 127 (23-300) U/L Imaging Data Chest x-ray: Radiologist's Impression: [address] [id number] ReportSigned Patient: Shadi Young LMR#: [id number]: 9Acct:[id number]/Sex: 60 / FDate of Service: 07/22/21Loc: EDAccession Number: [id number] Procedure: XR chest 1V Ordering Provider: Eduardo Haynes D.O. PROCEDURE: XR CHEST 1V INDICATIONS: Chest pain TECHNIQUE: One view of the chest was acquired. COMPARISON: None. FINDINGS: Surgical changes and devices: None. Lungs and pleura: Lungs are clear. No pleural effusions or pneumothorax. Mediastinum: Mediastinal contours appear normal. Heart size is normal. Bones and chest wall: No suspicious bony lesions. Overlying soft tissues appear unremarkable. IMPRESSION: No acute cardiopulmonary process demonstrated radiographically. Dictated by: Osmar Calderón M.D. on 07/22/2021 at 16:47 Approved by: Osmar Calderón M.D. on 07/22/2021 at 16:48 ECG Data Attestation: I personally reviewed and interpreted this ECG as follows: Prior ECG tracings: not available for review Interpretation: Presenting EKG Sinus rhythm Ventricular rate of 79 Normal axis Normal QRS Normal QTC Nonspecific ST T wave changes Repeat EKG Sinus rhythm Ventricular rate is 63 Normal QRS Normal QTC Unchanged from previous EKG MDM Narrative Medical decision making narrative: Patient is asymptomatic. She did have an elevated blood pressure. She has not been on medicines for the past couple days. She was given her home doses of medicine plus additional medicine to control her elevated blood pressure. Her blood pressure did improve with this. There is no signs of heart failure. No signs of ACS. No signs of kidney dysfunction. Low suspicion for intracranial abnormality. Had a long discussion with the patient regarding her blood pressure the importance of taking her medications. I will refill her blood pressure medications that were electronically transmitted to the pharmacy of her choice. She was given return precautions and follow-up instructions. She expressed understanding and agreement. Discharge Plan Departure Patient Disposition: Home Clinical Impression: HTN (hypertension) Instructions: DI for High Blood Pressure Activity Restrictions/Additional Instructions: Your blood pressure was elevated. This is most likely because you have of not been taking your medicines in the past couple days. [facility] Start taking them tomorrow as directed. Contact your primary doctor for follow-up. Return to the emergency department for any new or worsening symptoms Prescriptions: New atorvastatin 20 mg tablet 20 mg PO BEDTIME Qty: 30 RF: 0 hydrochlorothiazide 12.5 mg tablet 12.5 mg PO DAILY Qty: 30 RF: 0 lisinopril 40 mg tablet 40 mg PO DAILY Qty: 30 RF: 0 No Action nitrofurantoin macrocrystal 100 mg capsule 100 mg PO BID Qty: 10 RF: 0 hydroxyzine HCl 10 mg tablet 10 mg PO TID PRN (Reason: anxiety) Qty: 90 RF: 3 sertraline 25 mg tablet See Rx Instructions .ROUTE .COMPLEX Qty: 60 RF: 0 lisinopril 40 mg tablet 40 mg PO DAILY Qty: 30 RF: 0 hydrochlorothiazide 12.5 mg tablet 12.5 mg PO DAILY Qty: 30 RF: 0 betamethasone dipropionate 0.05 % cream 1 applic TOP BID PRN (Reason: rash) Qty: 45 RF: 1 cholecalciferol (vitamin D3) 50 mcg (2,000 unit) capsule 100 mcg PO DAILY RF: 0 propranolol 120 mg capsule,extended release 24 hr 120 mg PO BID Qty: 180 RF: 1 atorvastatin 20 mg tablet 20 mg PO BEDTIME Qty: 90 RF: 1 Referrals: Kali Brumfield DO [Primary Care Provider] -
[2021-07-22 19:07] VITALS: BP 215/100; PULSE 64
[2021-07-22] MEDS: hydroCHLOROthiazide 25 MG TABLET PO (19:07)
[2021-07-22] MEDS: HYDRALAZINE 20 MG/ML VIAL 10 MG IV (19:07)
[2021-07-22 20:37] VITALS: BP 194/98; PULSE 64; RESP 18; O2SAT 98
== END 2021-07-22 19:15 | disposition home or self-care (01) ==
PROVIDERS: Emergency Medicine; Emergency Provider Emergency Medicine; PCP Family Medicine
DX: I10 Essential (primary) hypertension (principal)
CPT/HCPCS: 71045; 80053; 82550; 83690; 84484; 85025; 93005; 96374; 96375; 99284; J0360

== ENCOUNTER → 2021-08-04 15:34 | Outpatient (CLI) | payer OTHER, SELFPAY ==
[2021-08-04 16:54] LABS: Add Manual Diff / Slide Review NO; Basophils Absolute Auto 0 /uL (0-100); Basophils Percent Auto 0.5 % (0-2); Eosinophils Absolute Auto 100 /uL (0-450); Hematocrit 41.5 % (36-46); Hemoglobin 14.4 g/dL (12.0-16.0); Lymphocytes Absolute Auto 2400 /uL (1100-4500); Lymphocytes Percent Auto 44.3 % (25-40); Mean Corpuscular HGB Conc 34.8 % (30-36); Mean Corpuscular Volume 103.6 fL (80-100); Monocytes Absolute Auto 600 /uL (0-900); Monocytes Percent Auto 10.3 % (3-14); Neutrophils Absolute Auto 2400 /uL (1500-7000); Neutrophils Percent Auto 43.9 % (50-75); Platelet Count 157 X10^3/uL (150-400); Red Cell Distribution Width 14.2 % (11.6-14.8); White Blood Cell Count 5.4 X10^3/uL (4.5-11.0)
[2021-08-04 17:15] LABS: Alanine Aminotransferase 47 IU/L (<35); Albumin 4.8 g/dL (3.5-5.0); Albumin Globulin Ratio 1.7 (1.0-2.8); Alkaline Phosphatase 83 U/L (38-126); Aspartate Aminotransferase 60 IU/L (14-36); BUN Creatinine Ratio 15.6 (6-22); Bilirubin Total 0.7 mg/dL (0.2-1.3); Blood Urea Nitrogen 12 mg/dL (7-17); Calcium 9.9 mg/dL (8.4-10.2); Carbon Dioxide 28 mmol/L (22-32); Chloride 90 mmol/L (98-107); Cholesterol 285 mg/dL (140-199); Estimated Glomerular Filt Rate > 60.0 mL/min (>60); Globulin 2.9 g/dL (1.7-4.1); Glucose 77 mg/dL (80-110); HEMOLYSIS < 15 (0-50); Potassium 4.6 mmol/L (3.4-5.1); Sodium 128 mmol/L (137-145); Total Protein 7.7 g/dL (6.3-8.2); Triglycerides 122 mg/dL (35-150)
[2021-08-04 17:22] LABS: HDL Cholesterol 109 mg/dL (40-60); LDL Cholesterol Calculated 152 mg/dL (<100)
== END ==
PROVIDERS: PCP Family Medicine; Referring Provider Family Medicine; Visit Provider Family Medicine
DX: E78.5 Hyperlipidemia, unspecified (principal); I10 Essential (primary) hypertension
CPT/HCPCS: 36415; 80053; 80061; 85025

== ENCOUNTER 2021-10-26 18:36 | Observation (INO) | payer OTHER, SELFPAY ==
[2021-10-26] VITALS (30 sets, daily range): BP systolic 102–201; BP diastolic 55–102; PULSE 53–66; RESP 11–29; TEMP 35.6; O2SAT 82–100
--- NOTE | 2021-10-26 18:39 | DI.RAD.S_ITS ---
PROCEDURE: XR CHEST 1V INDICATIONS: chest pain TECHNIQUE: One view of the chest was acquired. COMPARISON: [facility], CR, XR CHEST 1V, 07/22/2021, 15:56. FINDINGS: Surgical changes and devices: None. Lungs and pleura: Lungs are clear. No pleural effusions or pneumothorax. Mediastinum: Mediastinal contours appear normal. Heart size is normal. Bones and chest wall: No suspicious bony lesions. Overlying soft tissues appear unremarkable. IMPRESSION: No acute cardiopulmonary disease. Dictated by: Sonia Hernandez M.D. on 10/26/2021 at 19:16 Approved by: Sonia Hernandez M.D. on 10/26/2021 at 19:16
--- NOTE | 2021-10-26 18:40 | ED_ITS ---
HPI - Chest Pain General Chief Complaint: Chest Pain Stated Complaint: chest pain Time Seen by Provider: 10/26/21 18:39 History of Present Illness HPI narrative: Patient is a 61-year-old female history of alcohol abuse, hypertension, depression presenting today with sudden onset of left-sided chest pain. reports it started while she was lying down. She is gripping her chest seems to be sharp and stabbing. Not radiating. She has no shortness of breath. He is given aspirin in the ambulance. She has no known history of coronary artery disease. says she drinks daily but is unaware that she drank excessively today. She has been falling a little bit more today. No complaints of pain or injury from fall. Patient is mildly confused but awake alert answering questions with slurring of speech Related Data Previous Rx's Medication Instructions Recorded lisinopril 40 mg tablet 40 mg PO DAILY 90 Days #90 tab 08/27/21 propranolol 120 mg capsule,24 120 mg PO BID #180 cap 08/27/21 hr,extended release betamethasone dipropionate 0.05 % 1 applic TOP BID PRN #45 gram 09/12/21 topical cream hydrochlorothiazide 12.5 mg tablet 12.5 mg PO DAILY #90 tab 09/12/21 escitalopram oxalate 10 mg tablet 30 mg PO DAILY #90 tab 10/15/21 gabapentin 100 mg capsule 400 mg PO TID #120 cap 10/17/21 Allergies Allergy/AdvReac Type Severity Reaction Status Date / Time bupropion Allergy Intermediate hives Verified 10/26/21 18:40 atorvastatin AdvReac Intermediate Gastrointestinal Verified 10/26/21 18:40 Upset doxycycline AdvReac Intermediate diarrhea Verified 10/26/21 18:40 Review of Systems Review of Systems Narrative: GENERAL: Denies chills, fatigue, malaise, fever, sweats, travel HEENT: Denies sinus pain, ear pain, sore throat, difficulty swallowing, neck pain RESPIRATORY: Denies dyspnea, cough, wheezing, hemoptysis, sputum. CARDIOVASCULAR: See HPI GASTROINTESTINAL: Denies nausea, vomiting, abdominal pain, diarrhea, constipation, melena. : Denies dysuria, frequency, incontinence, hematuria, urinary retention, flank pain. MUSCULOSKELETAL: Denies weakness, joint pain, or bony pain SKIN: No rash, no erythema, no pruritus NEUROLOGIC: Denies weakness, dizziness, headache, numbness, change in speech, confusion PSYCHIATRIC: History of depression and alcohol abuse 12 point review of systems is negative except for those stated above and HPI Patient History Medical History Anorexia Anxiety Anxiety and depression Constipation Diverticulosis Eczema (~2018) Fatigue Foot pain (~1981) Hemorrhoid HTN (hypertension) Hyperlipidemia Low back pain Needs smoking cessation education Osteoarthritis Pelvic somatic dysfunction Seborrheic dermatitis of scalp Segmental and somatic dysfunction of abdomen and other regions Somatic dysfunction of spine, sacral Tobacco abuse disorder Tremor, anxiety related Vision disorder Vitamin deficiency Surgical History Anesthesia History of bunionectomy (~1981) History of carpal tunnel release (~1997) Status post foot surgery Status post hysterectomy (~1989) Family History Mother Cancer Brother Colon cancer Brother Liver cancer Social History Smoking Status: Current every day smoker Tobacco: How many years used: 50 quit status: not considering quitting second hand exposure: No alcohol intake: current substance use type: does not use and former substance user Smoking Status: Current every day smoker tobacco type: cigarettes and vaping alcohol intake frequency: 3 or more drinks per day Substance Use Type: does not use Exam Initial Vital Signs Initial Vital Signs: Vital Signs Temperature 96.1 F L 10/26/21 18:37 Pulse Rate 60 10/26/21 18:37 Respiratory Rate 22 10/26/21 18:37 Blood Pressure 201/102 H 10/26/21 18:37 Pulse Oximetry 97 10/26/21 18:37 GENERAL: 61-year-old female is awake alert no acute distress slurring speech, but understandable. Holding left chest seems uncomfortable HEENT: Head atraumatic no depressions crepitations abrasion or sign of injury, pupils reactive, face symmetric, moist mucous membranes CARDIOVASCULAR: Regular rate and rhythm without murmurs, rubs or gallops. RESPIRATORY: Breath sounds equal bilaterally, no wheezes rales or rhonchi. ABDOMEN: Soft, nontender. Normoactive bowel sounds all 4 quadrants. No guarding or rebound. EXTREMITIES: Normal range of motion, no clubbing or edema. Neurovascularly intact NEUROLOGICAL: Alert and oriented x4.Normal gait and speech. SKIN: Warm, dry, no laceration, no petechiae, no rashes or lesions. Course Orders Ordered: ED Orders 10/26/21 18:35 Complete Blood Count AUTO DIFF Stat Comprehensive Metabolic Panel Stat ETOH [Ethanol (ETOH)] Stat Lipase Stat NT-proBNP (BNP-Adult 18+) Stat Partial Thromboplastin Time Stat Prothrombin Time INR Stat Troponin & CK Cardiac Panel Stat 10/26/21 18:39 XR chest 1V Stat EKG-12 Lead Stat 10/26/21 18:53 CT angio chest abdomen pelvis Stat 10/26/21 18:59 CT head/brain wo con Stat 10/26/21 19:36 COVID19 -Nasal swab/Pre-Proc Stat 10/26/21 20:25 Trop I [Troponin I] Stat Acetaminophen (Acetaminophen 325 Mg Tablet) 650 mg PO Q6HR PRN PRN Reason: Fever/Mild Pain (1-3) Aspirin (Aspirin Ec 81 Mg Tablet) 81 mg PO DAILY [facility] Cyclobenzaprine HCl (Cyclobenzaprine 10 Mg Tablet) 10 mg PO TID [facility] Last Admin: 10/26/21 23:10 Dose: 10 mg Documented by: ALPESH Diclofenac Sodium (Diclofenac 1% Gel 100 Gm) 1 applic TOP QID [facility] Last Admin: 10/26/21 23:09 Dose: Not Given Documented by: ALPESH Enoxaparin Sodium (Enoxaparin 40 Mg/0.4 Ml Syringe) 40 mg SUBCUT DAILY [facility] Escitalopram Oxalate (Escitalopram 10 Mg Tablet) 30 mg PO DAILY [facility] Folic Acid (Folic Acid 1 Mg Tablet) 1 mg PO DAILY [facility] Gabapentin (Gabapentin 100 Mg Capsule) 400 mg PO TID [facility] Last Admin: 10/26/21 21:42 Dose: 400 mg Documented by: ALPESH Hydrochlorothiazide (Hydrochlorothiazide 25 Mg Tablet) 12.5 mg PO DAILY [facility] Sodium Chloride (Normal Saline 0.9%) 1,000 mls @ 150 mls/hr IV CONT [facility] Last Admin: 10/26/21 19:03 Dose: 150 mls/hr Documented by: ALPESH Ketorolac Tromethamine (Ketorolac 30 Mg/Ml Vial) 30 mg IV Q6HR PRN PRN Reason: Pain, Severe (7-10) Stop: 10/31/21 21:46 Lisinopril (Lisinopril 20 Mg Tablet) 40 mg PO DAILY [facility] Lorazepam (Lorazepam 2 Mg/Ml Inj) 0 mg IV [id number] PRN; Protocol PRN Reason: Alcohol Withdrawal Morphine Sulfate (Morphine 2 Mg/Ml Inj) 2 mg IV Q5MIN PRN PRN Reason: Chest Pain Multivitamins (Multivitamin 1 Tablet) 1 tab PO DAILY [facility] Naloxone HCl (Naloxone 0.4 Mg/Ml Vial) 0.2 mg IV Q2MIN PRN PRN Reason: Opiate Reversal Nicotine (Nicotine 14 Patch) 14 mg TOP DAILY [facility] Nitroglycerin (Nitroglycerin 0.4 Mg Sl Tab) 0.4 mg SL [id number] PRN PRN Reason: Chest Pain Last Admin: 10/26/21 20:07 Dose: 0.4 mg Documented by: RIAN Nitroglycerin (Nitroglycerin 0.4 Mg Sl Tab) 0.4 mg SL [id number] PRN PRN Reason: Chest Pain Ondansetron HCl (Ondansetron 4 Mg/2 Ml Inj) 4 mg IV Q6HR PRN PRN Reason: Nausea And Vomiting Propranolol HCl (Propranolol Er 60 Mg Capsule) 120 mg PO BID [facility] Last Admin: 10/26/21 21:44 Dose: Not Given Documented by: ALPESH Thiamine HCl (Thiamine 100 Mg Tablet) 100 mg PO DAILY [facility] Stop: 10/30/21 09:01 Discontinued Medications Ketorolac Tromethamine (Ketorolac 30 Mg/Ml Vial) 15 mg IV NOW ONE Stop: 10/26/21 20:02 Last Admin: 10/26/21 20:08 Dose: 15 mg Documented by: RIAN Pantoprazole Sodium (Pantoprazole 40 Mg Vial) 40 mg IV NOW ONE Stop: 10/26/21 20:02 Last Admin: 10/26/21 20:08 Dose: 40 mg Documented by: RIAN Vital Signs Vital signs: Vital Signs - 8 hr 10/26/21 18:37 10/26/21 19:00 10/26/21 19:01 Temperature 96.1 F L Pulse Rate 60 59 L 59 L Respiratory Rate 22 29 H 27 H Blood Pressure 201/102 H 142/81 H Pulse Oximetry 97 95 97 10/26/21 19:05 10/26/21 19:30 10/26/21 19:31 Temperature Pulse Rate 57 L 66 65 Respiratory Rate 25 H 21 Blood Pressure 133/79 145/76 H Pulse Oximetry 96 82 L 95 10/26/21 19:36 10/26/21 19:40 10/26/21 19:45 Temperature Pulse Rate 63 61 58 L Respiratory Rate 20 21 25 H Blood Pressure 143/70 H 150/78 H 142/78 H Pulse Oximetry 94 94 10/26/21 20:00 10/26/21 20:12 10/26/21 20:14 Temperature Pulse Rate 62 56 L Respiratory Rate 24 18 Blood Pressure 142/78 H 108/55 L Pulse Oximetry 95 97 10/26/21 20:15 10/26/21 20:21 10/26/21 20:26 Temperature Pulse Rate 55 L 54 L 53 L Respiratory Rate 20 20 17 Blood Pressure 102/56 L 138/70 130/60 Pulse Oximetry 96 95 97 10/26/21 20:30 10/26/21 20:31 10/26/21 20:35 Temperature Pulse Rate 65 63 60 Respiratory Rate 29 H 23 26 H Blood Pressure 123/60 125/60 Pulse Oximetry 90 L 94 95 10/26/21 20:41 10/26/21 20:46 10/26/21 20:50 Temperature Pulse Rate 55 L 60 58 L Respiratory Rate 24 23 27 H Blood Pressure 143/62 H 154/65 H 141/65 H Pulse Oximetry 94 95 94 10/26/21 20:55 Temperature Pulse Rate 56 L Respiratory Rate 21 Blood Pressure 140/65 Pulse Oximetry 91 MDM - Chest Pain Lab Data Result diagrams: 10/26/21 18:35 10/26/21 18:35 Labs: Lab Results 10/26/21 10/26/21 10/26/21 Range/Units 18:35 18:35 18:35 WBC 6.3 (4.5-11.0) X10^3/uL RBC 4.33 (4.0-5.2) X10^6/uL Hgb 15.9 (12.0-16.0) g/dL Hct 45.0 (36-46) % MCV 103.9 H (80-100) fL MCH 36.7 H (26-34) PG MCHC 35.3 (30-36) % RDW 14.3 (11.6-14.8) % Plt Count 127 L (150-400) X10^3/uL Neut % (Auto) 38.2 L (50-75) % Lymph % (Auto) 50.0 H (25-40) % Ellis % (Auto) 9.9 (3-14) % Eos % (Auto) 1.2 L (2-4) % Baso % (Auto) 0.7 (0-2) % Neut # (Auto) 2400 (9934-9435) /uL Lymph # (Auto) 3100 (5888-9851) /uL Ellis # (Auto) 600 (0-900) /uL Eos # (Auto) 100 (0-450) /uL Baso # (Auto) 0 (0-100) /uL PT 9.8 L (10.1-12.7) SECONDS INR 0.9 (0.9-1.3) APTT 33 (26.4-36.2) SECONDS Sodium 131 L (137-145) mmol/L Potassium 4.9 (3.4-5.1) mmol/L Chloride 93 L (98-107) mmol/L Carbon Dioxide 30 (22-32) mmol/L BUN 10 (7-17) mg/dL Creatinine 0.71 (0.52-1.04) mg/dL Estimated GFR > 60.0 (>60) mL/min BUN/Creatinine Ratio 14.1 (6-22) Glucose 97 (80-110) mg/dL Calcium 9.6 (8.4-10.2) mg/dL Magnesium (1.6-2.3) mg/dL Total Bilirubin 0.6 (0.2-1.3) mg/dL AST 110 H (14-36) IU/L ALT 81 H (<35) IU/L Alkaline Phosphatase 117 (38-126) U/L Total Creatine Kinase 61 (30-135) U/L CK-MB (CK-2) TNP CK-MB (CK-2) Rel Index TNP Troponin I 0.030 (0.01-0.034) ng/mL NT-Pro-B Natriuret Pep 109 (<125) pg/mL Total Protein 8.9 H (6.3-8.2) g/dL Albumin 4.9 (3.5-5.0) g/dL Globulin 4.0 (1.7-4.1) g/dL Albumin/Globulin Ratio 1.2 (1.0-2.8) Lipase 206 (23-300) U/L Ethyl Alcohol 418 H* ( - 10) mg/dL SARS-CoV-2 (PCR) (Negative) 10/26/21 10/26/21 10/26/21 Range/Units 18:38 18:38 19:36 WBC (4.5-11.0) X10^3/uL RBC (4.0-5.2) X10^6/uL Hgb (12.0-16.0) g/dL Hct (36-46) % MCV (80-100) fL MCH (26-34) PG MCHC (30-36) % RDW (11.6-14.8) % Plt Count (150-400) X10^3/uL Neut % (Auto) (50-75) % Lymph % (Auto) (25-40) % Ellis % (Auto) (3-14) % Eos % (Auto) (2-4) % Baso % (Auto) (0-2) % Neut # (Auto) (8765-6348) /uL Lymph # (Auto) (9895-4151) /uL Ellis # (Auto) (0-900) /uL Eos # (Auto) (0-450) /uL Baso # (Auto) (0-100) /uL PT (10.1-12.7) SECONDS INR (0.9-1.3) APTT (26.4-36.2) SECONDS Sodium (137-145) mmol/L Potassium (3.4-5.1) mmol/L Chloride (98-107) mmol/L Carbon Dioxide (22-32) mmol/L BUN (7-17) mg/dL Creatinine (0.52-1.04) mg/dL Estimated GFR (>60) mL/min BUN/Creatinine Ratio (6-22) Glucose (80-110) mg/dL Calcium (8.4-10.2) mg/dL Magnesium 1.7 (1.6-2.3) mg/dL Total Bilirubin (0.2-1.3) mg/dL AST (14-36) IU/L ALT (<35) IU/L Alkaline Phosphatase (38-126) U/L Total Creatine Kinase (30-135) U/L CK-MB (CK-2) CK-MB (CK-2) Rel Index Troponin I (0.01-0.034) ng/mL NT-Pro-B Natriuret Pep Cancelled (<125) pg/mL Total Protein (6.3-8.2) g/dL Albumin (3.5-5.0) g/dL Globulin (1.7-4.1) g/dL Albumin/Globulin Ratio (1.0-2.8) Lipase (23-300) U/L Ethyl Alcohol ( - 10) mg/dL SARS-CoV-2 (PCR) Negative (Negative) 10/26/21 Range/Units 20:25 WBC (4.5-11.0) X10^3/uL RBC (4.0-5.2) X10^6/uL Hgb (12.0-16.0) g/dL Hct (36-46) % MCV (80-100) fL MCH (26-34) PG MCHC (30-36) % RDW (11.6-14.8) % Plt Count (150-400) X10^3/uL Neut % (Auto) (50-75) % Lymph % (Auto) (25-40) % Ellis % (Auto) (3-14) % Eos % (Auto) (2-4) % Baso % (Auto) (0-2) % Neut # (Auto) (4951-4169) /uL Lymph # (Auto) (1019-3291) /uL Ellis # (Auto) (0-900) /uL Eos # (Auto) (0-450) /uL Baso # (Auto) (0-100) /uL PT (10.1-12.7) SECONDS INR (0.9-1.3) APTT (26.4-36.2) SECONDS Sodium (137-145) mmol/L Potassium (3.4-5.1) mmol/L Chloride (98-107) mmol/L Carbon Dioxide (22-32) mmol/L BUN (7-17) mg/dL Creatinine (0.52-1.04) mg/dL Estimated GFR (>60) mL/min BUN/Creatinine Ratio (6-22) Glucose (80-110) mg/dL Calcium (8.4-10.2) mg/dL Magnesium (1.6-2.3) mg/dL Total Bilirubin (0.2-1.3) mg/dL AST (14-36) IU/L ALT (<35) IU/L Alkaline Phosphatase (38-126) U/L Total Creatine Kinase (30-135) U/L CK-MB (CK-2) CK-MB (CK-2) Rel Index Troponin I 0.027 (0.01-0.034) ng/mL NT-Pro-B Natriuret Pep (<125) pg/mL Total Protein (6.3-8.2) g/dL Albumin (3.5-5.0) g/dL Globulin (1.7-4.1) g/dL Albumin/Globulin Ratio (1.0-2.8) Lipase (23-300) U/L Ethyl Alcohol ( - 10) mg/dL SARS-CoV-2 (PCR) (Negative) Urine Dip Bedside Urine Glucose Negative Bedside Urine Bilirubin - Negative Bedside Urine Ketone - Negative Urine Specific [place] 1.010 Bedside Urine Occult Blood - Negative Bedside Urine pH 6.0 Bedside Urine Protein - Negative Bedside Urine Urobilinogen - Negative Bedside Urine Nitrite - Negative Bedside Urine Leukocytes - Negative Esterase ECG Data Interpretation: EKG 1.: Normal sinus rhythm rate 55 MI interval 182 QRS [address] changes or T-wave inversions she is noted to have Q-wave in lead 3 to previous EKG in June 2021 EKG 2. Sinus rhythm rate 60 no changes. [facility] Narrative Medical decision making narrative: Patient is found have severe chest pain hypertension holding left side of her chest. It is non radiating she is given nitroglycerin without any relief she is given morphine so that she can go to CT and quickly rule out dissection. Both head CT and CT angio are negative. PE given is given side stroke I did again does not help she is also given Protonix and Toradol to see if it will help with her pain. She has 2- troponins intact there decreasing and no ischemic changes. CT angio did show atherosclerosis and coronary arteries. Blood pressure has improved in the ER. She is found to be quite intoxicated with an alcohol level of 418 she states she only has 3 drinks daily. At this time she is not showing signs of withdrawal. Due to patient's severe pain is and is coronary artery disease found on CT recommend patient stay for further workup. [place], in ED to see evaluate patient and accepts. Discharge Plan Departure Patient Disposition: Admitted as Observation Clinical Impression: Chest pain Admit Date/Time: 10/26/21 20:59 Admit Provider: Camryn Toscano
[2021-10-26 18:44] LABS: Add Manual Diff / Slide Review NO; Basophils Absolute Auto 0 /uL (0-100); Basophils Percent Auto 0.7 % (0-2); Eosinophils Absolute Auto 100 /uL (0-450); Eosinophils Percent Auto 1.2 % (2-4); Hemoglobin 15.9 g/dL (12.0-16.0); Lymphocytes Absolute Auto 3100 /uL (1100-4500); Mean Corpuscular HGB Conc 35.3 % (30-36); Mean Corpuscular Hemoglobin 36.7 PG (26-34); Mean Corpuscular Volume 103.9 fL (80-100); Monocytes Absolute Auto 600 /uL (0-900); Monocytes Percent Auto 9.9 % (3-14); Neutrophils Absolute Auto 2400 /uL (1500-7000); Neutrophils Percent Auto 38.2 % (50-75); Platelet Count 127 X10^3/uL (150-400); Red Blood Cell Count 4.33 X10^6/uL (4.0-5.2); Red Cell Distribution Width 14.3 % (11.6-14.8); White Blood Cell Count 6.3 X10^3/uL (4.5-11.0)
[2021-10-26 18:51] LABS: INR 0.9 (0.9-1.3); Prothrombin Time 9.8 SECONDS (10.1-12.7)
[2021-10-26] MEDS: NITROGLYCERIN 0.4 MG SL TAB SL ×2 (18:51→20:07)
[2021-10-26 18:53] LABS: PTT Partial Thromboplastin Tim 33 SECONDS (26.4-36.2)
--- NOTE | 2021-10-26 18:53 | DI.CT.S_ITS ---
PROCEDURE: CT ANGIO CHEST ABDOMEN PELVIS INDICATIONS: severe chest pain TECHNIQUE: Precontrast 5 mm thick sections acquired from the lung apices to the iliac crests. After the administration of intravenous contrast, 2.5 mm thick sections again acquired from the lung apices to the iliac crests. Maximum intensity projection (MIP) oblique sagittal and coronal reformats were then acquired. For radiation dose reduction, the following was used: automated exposure control. COMPARISON: [facility], CT, CT ABDOMEN PELVIS W CON, 08/08/2019, 17:35. [facility], CR, XR CHEST 1V, 10/26/2021, 18:43. FINDINGS: Image quality: Excellent. AORTA: Normal caliber. No aneurysm or dissection. [id number] atherosclerosis. CHEST: Lungs and pleura: Mild emphysema. No acute airspace opacities. No pleural effusions or pneumothorax. Central and peripheral airways are patent and normal in caliber. Small lung nodules are present. Nodule 1: 3 mm; right upper lobe; series 13, image 32; solid. Nodule 2: 2 mm; right upper lobe; series 13 image 56; solid. Nodule 3: 1 mm; left upper lobe; series 13, image 23; solid. Mediastinum: Heart size is mildly increased. Moderate coronary artery calcification. No pericardial effusion. No mediastinal or hilar adenopathy by size criteria. Central pulmonary arteries are normal in size. Esophagus is normal in caliber. Small hiatal hernia. Mild eccentric thickening of the distal esophagus at the GE junction. Bones and chest wall: No axillary adenopathy by size criteria. There are nodules in the left thyroid lobe. No suspicious bony lesions. No vertebral body compression fractures. ABDOMEN: Vasculature: Celiac trunk and mesenteric arteries are patent. There is a single renal artery on the left side. Severe stenosis of the proximal left renal artery. Two renal arteries are seen on the right side, both are patent without high-grade stenosis. Solid organs: Liver is normal in size. There is moderate hepatic steatosis. A 1.7 cm enhancing nodule is seen in the posterior segment of right hepatic lobe, unchanged in size. On the comparison CT dated 08/08/2019, there is peripheral nodular enhancement. It is compatible with a hepatic hemangioma. Gallbladder is normal . Biliary system is non dilated. Pancreas enhances normally. Spleen is normal in size and enhancement. No adrenal nodules. Mild left adrenal thickening. Both kidneys are normal in size and enhancement, without hydronephrosis. Low-density cortical nodules in left kidney are most likely cysts. Peritoneum and bowel: No free fluid or air. Bowel loops are normal in caliber and wall thickness. Nodes and vessels: No retroperitoneal or mesenteric adenopathy by size criteria. Inferior vena cava is normal in morphology. Miscellaneous: No ventral hernias. PELVIS: Genitourinary: Uterus is absent. Ovaries are unremarkable. Bladder wall thickness is normal. Miscellaneous: No inguinal hernias or adenopathy. No ventral hernias. Bones: There is a sclerotic focus in the left iliac bone, most likely a bone island.. No vertebral body compression fractures. IMPRESSION: 1. [id number] atherosclerotic calcifications of aorta. No aneurysm or dissection. 2. Moderate coronary artery atherosclerosis. 3. No findings to suggest pulmonary embolism. 4. Mild emphysema. 5. Small pulmonary nodules. Please see enclosed follow-up recommendation. 6. Small hiatal hernia. There is mild eccentric thickening of the distal esophagus. Recommend EGD for follow-up evaluation. 7. Diverticulosis without diverticulitis. 8. A 1.7 cm hepatic hemangioma in the posterior segment of right hepatic lobe. 9. Severe left renal artery stenosis. Fleischner Society criteria for SOLID lung nodule followup. Nodule size (mm)Low-risk patientHigh-risk patient?4No follow-up neededFollow-up at 12 mo; if no change, no further follow-up>[id number] CT at 12 mo; if no change, no further follow-up needed.Initial follow-up CT at 6-12 mo, then 18-24 mo if no change. >6-8Initial follow-up CT at 6-12 mo, then 18-24 mo if no change. Initial follow-up CT at 3-6 mo, then 9-12 mo and 24 mo if no change. >8Follow-up CT at 3, 9, 24 mo. Or PET and/or biopsy.Same as for low-risk pts. Dictated by: Sonia Hernandez M.D. on 10/26/2021 at 20:12 Approved by: Sonia Hernandez M.D. on 10/26/2021 at 20:32
[2021-10-26 18:55] LABS: Alanine Aminotransferase 81 IU/L (<35); Albumin 4.9 g/dL (3.5-5.0); Albumin Globulin Ratio 1.2 (1.0-2.8); Alkaline Phosphatase 117 U/L (38-126); Aspartate Aminotransferase 110 IU/L (14-36); BUN Creatinine Ratio 14.1 (6-22); Bilirubin Total 0.6 mg/dL (0.2-1.3); Blood Urea Nitrogen 10 mg/dL (7-17); Calcium 9.6 mg/dL (8.4-10.2); Carbon Dioxide 30 mmol/L (22-32); Chloride 93 mmol/L (98-107); Creatine Kinase 61 U/L (30-135); Estimated Glomerular Filt Rate > 60.0 mL/min (>60); Glucose 97 mg/dL (80-110); HEMOLYSIS 39 (0-50); Lipase 206 U/L (23-300); Potassium 4.9 mmol/L (3.4-5.1); Sodium 131 mmol/L (137-145); Total Protein 8.9 g/dL (6.3-8.2)
--- NOTE | 2021-10-26 18:59 | DI.CT.S_ITS ---
PROCEDURE: CT HEAD/BRAIN WO CON INDICATIONS: falling TECHNIQUE: Noncontrast 4.5 mm thick angled axial sections acquired from the foramen magnum to the vertex, with coronal and sagittal reformats. For radiation dose reduction, the following was used: automated exposure control, adjustment of mA and/or kV according to patient size. COMPARISON: None. FINDINGS: Image quality: Excellent. CSF spaces: Basal cisterns are patent. No extra-axial fluid collections. The ventricles are symmetric in size and shape. Brain: No intracranial bleeds or masses. There is moderate cerebral volume loss for age, with resultant ventricular and sulcal prominence. There are moderate periventricular and deep white matter chronic small vessel ischemic changes. There is intracranial internal carotid artery atherosclerosis. Skull and face: Calvarium and visualized facial bones appear intact, without suspicious lesions. Sinuses: Visualized sinuses and mastoids are clear. IMPRESSION: 1. No acute intracranial abnormalities. 2. Moderate cerebral volume loss and chronic microvascular ischemic changes. Dictated by: Sonia Hernandez M.D. on 10/26/2021 at 19:57 Approved by: Sonia Hernandez M.D. on 10/26/2021 at 19:58
[2021-10-26] MEDS: SODIUM CHLORIDE 0.9% 1,000 ML 150 ML IV (19:03)
[2021-10-26 19:04] LABS: Ethanol (ETOH) 418 mg/dL
[2021-10-26] MEDS: MORPHINE 4 MG/ML INJ (19:04)
[2021-10-26 19:07] LABS: NT-proBNP (BNP-Adult 18+) 109 pg/mL (<125)
[2021-10-26 20:01] LABS: COVID19 -Nasal RAPID Negative (Negative)
[2021-10-26] MEDS: KETOROLAC 30 MG/ML VIAL 15 MG IV (20:08)
[2021-10-26] MEDS: PANTOPRAZOLE 40 MG VIAL IV (20:08)
[2021-10-26 20:54] LABS: Troponin I 0.027 ng/mL (0.01-0.034)
--- NOTE | 2021-10-26 21:13 | DI.ECHO.S_ITS ---
[place] +---------+ [facility] +---------+ : : [address] : [place] : : : : [id number] : : : : Phone: [phone] Echocardiogram Report + + :Name: SALO HOLBROOK Study Date: 10/27/2021 Height: 65 in : :[facility] ReadingLocation: Weight: 140 lb : : Gender: Female BSA: 1.7 m2 : :: 1960 Age: 61 yrs BP: 178/79 mmHg: :Reason For Study: CHEST PAIN : :Ordering Physician: CHIDI, : :ABHIJIT Performed By: oRsa Isela Hutchison : :Referring: ABHIJIT MURILLO : + + Interpretation Summary Borderline concentric left ventricular hypertrophy with ejection fraction 60- 65%. Mild mitral annular calcification. No valvular regurgitation. Procedure: A two-dimensional transthoracic echocardiogram with color flow and Doppler was performed. Images from the parasternal window were difficult to obtain and are suboptimal in quality. There is no prior echocardiogram noted for this patient. The patient was in sinus rhythm with heart rates between 55-75 bpm during the exam. Left Ventricle: The left ventricle is normal in size. There is borderline concentric left ventricular hypertrophy. The ejection fraction is estimated to be 60-65%. There are no focal wall motion abnormalities. Diastolic parameters suggest a relaxation abnormality of the left ventricle, consistent with probable normal filling pressures. Right Ventricle: The right ventricle is normal in size and function. Atria: The left atrial size is normal. Right atrial size is normal. There is no Doppler evidence for an interatrial shunt. Mitral Valve: There is mild mitral annular calcification. The mitral valve leaflets appear mildly thickened, but open well. There is trace mitral regurgitation. Aortic Valve: The aortic valve opens well. The aortic valve is grossly normal. There is no aortic valve stenosis. No aortic regurgitation is present. Tricuspid Valve: The tricuspid valve is normal in structure and function. There is trace tricuspid regurgitation. Pulmonic Valve: The pulmonic valve is not well visualized. There is no pulmonic valvular regurgitation. Great Vessels: The aortic root is normal size. The dimensions of the ascending aorta are normal. The IVC is of normal diameter and collapses greater than 50% with a sniff. This suggests a low right atrial pressure of 3 mm Hg. Pericardium/ Pleura There is no pericardial effusion. There is no pleural effusion. MMode/2D Measurements & Calculations LVIDd: 4.2 cm LVOT diam: 2.0 cm LVIDs: 2.8 cm Ao root diam: 2.7 cm FS: 34.3 % asc Aorta Diam: 2.9 cm IVSd: 1.1 cm Ao Arch Diam (Prox Trans): 2.5 cm LVPWd: 1.1 cm LV edouard. diameter/BSA (cm/m^2): 2.5 LV sys. diameter/BSA (cm/m^2): 1.6 LA A2 area: 18.4 cm2 RA long axis: 5.0 cm LA A4 area: 14.7 cm2 RA area: 13.3 cm2 LA length (vol): 5.5 cm RA vol: 29.9 ml LA vol: 42.1 ml RA : 17.6 ml/m2 LA vol index: 24.8 ml/m2 IVC diam: 1.0 cm RVD1 (basal): 3.1 cm TAPSE: 2.1 cm Doppler Measurements & Calculations Ao V2 max: 126.3 cm/sec LVOT Max Chevy: 106.6 cm/sec Ao V2 mean: 87.8 cm/sec LV V1 max P.5 mmHg Ao max P.4 mmHg LV V1 VTI: 26.4 cm Ao mean P.4 mmHg JIM(I,D): 2.7 cm2 Ao V2 VTI: 29.4 cm JIM(V,D): 2.6 cm2 sev ratio: 0.90 JIM indexed to BSA (cm^2/m^2): 1.6 MV E max chevy: 80.6 cm/sec PA V2 max: 75.3 cm/sec MV A max chevy: 90.9 cm/sec PA V2 mean: 54.8 cm/sec MV E/A: 0.89 PA mean P.3 mmHg Med Peak E' Chevy: 6.7 cm/sec PA pr(Accel): 36.2 mmHg E/E' med: 12.0 Lat Peak E' Chevy: 7.3 cm/sec E/E' lat: 11.1 E/e' average: 11.5 MV dec time: 0.28 sec SV(LVOT): 80.2 ml Electronically signed by: Иван Alas on Reading Physician:10/27/2021 11:02 AM
[2021-10-26 21:31] LABS: Magnesium 1.7 mg/dL (1.6-2.3)
[2021-10-26] MEDS: GABAPENTIN 100 MG CAPSULE 400 MG PO (21:42)
[2021-10-26 21:54] LABS: Ammonia (NH3) < 9 umol/L (9-30)
[2021-10-26] MEDS: CYCLOBENZAPRINE 10 MG TABLET PO (23:10)
[2021-10-27] VITALS (20 sets, daily range): BP systolic 138–195; BP diastolic 72–98; PULSE 55–99; RESP 8–23; TEMP 34.4; O2SAT 94–100; BMI 24.0
--- NOTE | 2021-10-27 01:07 | P.HP_ITS ---
History of Present Illness History of Present Illness Date Patient Seen: 10/26/21 Time Patient Seen: 21:20 Chief complaint: chest pain Narrative: Shadi Young is a 61-year-old female history of significant alcohol abuse, tobacco abuse, hypertension, depression and presented today with sudden onset of left-sided chest pain.?Upon admit interview the patient is unable to recall when the pain began or what she was doing. Her spouse reported to the ED that the patient was resting in bed when the pain began. Spouse reported to the ED that his has been falling a little bit more today. And on presentation to the ED the patient was mildly confused but awake alert answering questions with slurring of speech. The patients pain comes and goes, located left midclavicular line 5th intercostal space, without radiation. The pain varies between sharp and achy, worsens with deep breathing, raising the left arm, twisting movement of upper body, and with palpation.?The patient reports that nothing improves the pain, pt was given nitro & MS in ED, denies Patient denies history of coronary artery disease, shortness of breath, abdominal pain, nausea, vomiting, diap horesis, headache, changes in vision, weakness, numbness, swelling of extremities, fever, body aches, chills, recent illness injury or trauma. Patient endorses regular heavy alcohol intake, and that her last drink was at 3:00 p.m. earlier today. Patient's vitals upon admit were stable temp 96.1?, BP 142/78, HR 60, RR 22, O2 saturation 97% on room air. Patient has a platelet count 127, MCV 103.9, MCH 36.7. Hyponatremia sodium 131, chloride 93, AST 110, ALT 81. Patient's troponins were mildly elevated but stable likely represent baseline troponin 1. 0.030, troponin 2. 0.027, EtOH 418. Patient's 1st EKG sinus bradycardia with a rate of [address] or T-wave changes repeat EKG is normal sinus rhythm with a rate of [address] or T-wave changes. Patient's head CT was negative for any acute intracranial processes., patient's chest abdomen pelvis CT was negative for any pulmonary embolisms, patient's chest x-ray was negative for any acute cardiopulmonary processes. Admitted for chest pain rule out. Patient History Medical History Alcohol abuse Anorexia Anxiety Anxiety and depression Constipation Diverticulosis Eczema (~2018) Fatigue Foot pain (~1981) Hemorrhoid HTN (hypertension) Hyperlipidemia Low back pain Needs smoking cessation education Osteoarthritis Pelvic somatic dysfunction Seborrheic dermatitis of scalp Segmental and somatic dysfunction of abdomen and other regions Somatic dysfunction of spine, sacral Tobacco abuse disorder Tremor, anxiety related Vision disorder Vitamin deficiency Surgical History Anesthesia History of bunionectomy (~1981) History of carpal tunnel release (~1997) Status post foot surgery Status post hysterectomy (~1989) Family & Social History Family History Mother Cancer Brother Colon cancer Brother Liver cancer Safety & Behavioral: Feels Safe in Current Yes Environment Been Physically Hurt or No Threatened By a Person Tobacco & Substance use: Smoking Status Current every day smoker alcohol intake current alcohol intake frequency 3 or more drinks per day Substance Use Type does not use Meds Home Medications and Allergies Home Medications Medication Instructions Recorded Confirmed Type lisinopril 40 mg tablet 40 mg PO DAILY 90 Days #90 tab 08/27/21 10/26/21 Rx propranolol 120 mg capsule,24 120 mg PO BID #180 cap 08/27/21 10/26/21 Rx hr,extended release betamethasone dipropionate 0.05 % 1 applic TOP BID PRN #45 gram 09/12/21 10/26/21 Rx topical cream hydrochlorothiazide 12.5 mg tablet 12.5 mg PO DAILY #90 tab 09/12/21 10/26/21 Rx escitalopram oxalate 10 mg tablet 30 mg PO DAILY #90 tab 10/15/21 10/26/21 Rx gabapentin 100 mg capsule 400 mg PO TID #120 cap 10/17/21 10/26/21 Rx Allergies Allergy/AdvReac Type Severity Reaction Status Date / Time bupropion Allergy Intermediate hives Verified 10/26/21 18:40 atorvastatin AdvReac Intermediate Gastrointestinal Verified 10/26/21 18:40 Upset doxycycline AdvReac Intermediate diarrhea Verified 10/26/21 18:40 Review of Systems Review of Systems Narrative: All 12 point systems reviewed with the patient and are negative except otherwise documented. Exam Vital Signs (past 8 hours): - 10/26/21 18:37 10/26/21 19:00 10/26/21 19:01 Temperature 96.1 F L Pulse Rate 60 59 L 59 L Respiratory Rate 22 29 H 27 H Blood Pressure 201/102 H 142/81 H Pulse Oximetry 97 95 97 10/26/21 19:05 10/26/21 19:30 10/26/21 19:31 Temperature Pulse Rate 57 L 66 65 Respiratory Rate 25 H 21 Blood Pressure 133/79 145/76 H Pulse Oximetry 96 82 L 95 10/26/21 19:36 10/26/21 19:40 10/26/21 19:45 Temperature Pulse Rate 63 61 58 L Respiratory Rate 20 21 25 H Blood Pressure 143/70 H 150/78 H 142/78 H Pulse Oximetry 94 94 10/26/21 20:00 10/26/21 20:12 10/26/21 20:14 Temperature Pulse Rate 62 56 L Respiratory Rate 24 18 Blood Pressure 142/78 H 108/55 L Pulse Oximetry 95 97 10/26/21 20:15 10/26/21 20:21 10/26/21 20:26 Temperature Pulse Rate 55 L 54 L 53 L Respiratory Rate 20 20 17 Blood Pressure 102/56 L 138/70 130/60 Pulse Oximetry 96 95 97 10/26/21 20:30 10/26/21 20:31 10/26/21 20:35 Temperature Pulse Rate 65 63 60 Respiratory Rate 29 H 23 26 H Blood Pressure 123/60 125/60 Pulse Oximetry 90 L 94 95 10/26/21 20:41 10/26/21 20:46 10/26/21 20:50 Temperature Pulse Rate 55 L 60 58 L Respiratory Rate 24 23 27 H Blood Pressure 143/62 H 154/65 H 141/65 H Pulse Oximetry 94 95 94 10/26/21 20:55 10/26/21 21:00 10/26/21 21:01 Temperature Pulse Rate 56 L 60 56 L Respiratory Rate 21 22 20 Blood Pressure 140/65 155/72 H Pulse Oximetry 91 10/26/21 21:30 10/26/21 21:44 Temperature Pulse Rate 63 Respiratory Rate 23 Blood Pressure 165/99 H Pulse Oximetry 91 93 Oxygen Delivery Method Room Air Narrative Exam Narrative: General: Patient is a well-developed, well-nourished female, who appears older than stated age, in no distress at this time. HEENT: Normocephalic, atraumatic, extraocular muscles intact, oral pharynx is clear and mucous membranes are moist. Neck is supple and symmetric, trachea is midline, no adenopathy, no thyroid enlargement, nontender, no masses palpated. Negative for JVD Chest: Normal AP diameter and contour without kyphoscoliosis, no nasal flaring, retractions, or tachypneic labored breathing. Lungs: Auscultation of all lung cespedes are clear without adventitious sounds, wheezes, rhonchi, or rales. Cardio: Bradycardia rate and rhythm without murmur, rubs, or gallops, no car otid bruit, no cardiac pulsations present. Abdomen: Soft nontender, negative for organomegaly, or masses. Bowel sounds are present in all 4 quadrants without guarding or rebound, no CVA tenderness. Musculoskeletal: Muscle strength and tone are equal within normal limits, no deformity, crepitus, effusions, cyanosis, clubbing or edema present. Full range of motion intact radial and pedal pulses are normal. Skin: Warm dry and intact without rashes, ulcerations or petechiae. Neuro: Alert and orientated x3, strength is +5/5 in all extremities, sensation to touch intact, no gross deficits noted of cranial nerves. Psych: Patient has a dishevelled appearance, appropriate affect, mental status attitude thought context and judgment are appropriate for age. Objective Labs Result Diagrams: 10/26/21 18:35 10/26/21 18:35 Labs: Laboratory Results - last 24 hr 10/26/21 10/26/21 10/26/21 18:35 18:35 18:35 WBC 6.3 RBC 4.33 Hgb 15.9 Hct 45.0 MCV 103.9 H MCH 36.7 H MCHC 35.3 RDW 14.3 Plt Count 127 L Neut % (Auto) 38.2 L Lymph % (Auto) 50.0 H Cherry % (Auto) 9.9 Eos % (Auto) 1.2 L Baso % (Auto) 0.7 Neut # (Auto) 2400 Lymph # (Auto) 3100 Cherry # (Auto) 600 Eos # (Auto) 100 Baso # (Auto) 0 PT 9.8 L INR 0.9 APTT 33 Sodium 131 L Potassium 4.9 Chloride 93 L Carbon Dioxide 30 BUN 10 Creatinine 0.71 Estimated GFR > 60.0 BUN/Creatinine Ratio 14.1 Glucose 97 Calcium 9.6 Magnesium Total Bilirubin 0.6 AST 110 H ALT 81 H Alkaline Phosphatase 117 Ammonia Total Creatine Kinase 61 CK-MB (CK-2) TNP CK-MB (CK-2) Rel Index TNP Troponin I 0.030 NT-Pro-B Natriuret Pep 109 Total Protein 8.9 H Albumin 4.9 Globulin 4.0 Albumin/Globulin Ratio 1.2 Lipase 206 Ethyl Alcohol 418 H* SARS-CoV-2 (PCR) 10/26/21 10/26/21 10/26/21 18:38 18:38 19:36 WBC RBC Hgb Hct MCV MCH MCHC RDW Plt Count Neut % (Auto) Lymph % (Auto) Cherry % (Auto) Eos % (Auto) Baso % (Auto) Neut # (Auto) Lymph # (Auto) Cherry # (Auto) Eos # (Auto) Baso # (Auto) PT INR APTT Sodium Potassium Chloride Carbon Dioxide BUN Creatinine Estimated GFR BUN/Creatinine Ratio Glucose Calcium Magnesium 1.7 Total Bilirubin AST ALT Alkaline Phosphatase Ammonia Total Creatine Kinase CK-MB (CK-2) CK-MB (CK-2) Rel Index Troponin I NT-Pro-B Natriuret Pep Cancelled Total Protein Albumin Globulin Albumin/Globulin Ratio Lipase Ethyl Alcohol SARS-CoV-2 (PCR) Negative 10/26/21 10/26/21 20:25 21:35 WBC RBC Hgb Hct MCV MCH MCHC RDW Plt Count Neut % (Auto) Lymph % (Auto) Cherry % (Auto) Eos % (Auto) Baso % (Auto) Neut # (Auto) Lymph # (Auto) Cherry # (Auto) Eos # (Auto) Baso # (Auto) PT INR APTT Sodium Potassium Chloride Carbon Dioxide BUN Creatinine Estimated GFR BUN/Creatinine Ratio Glucose Calcium Magnesium Total Bilirubin AST ALT Alkaline Phosphatase Ammonia < 9 L Total Creatine Kinase CK-MB (CK-2) CK-MB (CK-2) Rel Index Troponin I 0.027 NT-Pro-B Natriuret Pep Total Protein Albumin Globulin Albumin/Globulin Ratio Lipase Ethyl Alcohol SARS-CoV-2 (PCR) Assessment & Plan Assessment & Plan narrative: Shadi Young is a 61-year-old female history of significant alcohol abuse, tobacco abuse, hypertension, depression and presented today with sudden onset of left-sided chest pain.? She is to be admitted for chest pain rule out, and risk stratification. 1. Chest pain, acute, present on admission -I believe this to be left costochondritis, but patient has a Heart Score:4, history of hyperlipidemia, essential hypertension, is a pack-a-day smoker and heavy alcohol intake all putting her a high for a cardiovascular event. -troponin 1.# 0.030, troponin 2.# 0.027, EtOH 418. -EKG#1- sinus bradycardia with a rate of [address] or T-wave changes repeat. EKG #2- normal sinus rhythm with a rate of [address] or T-wave changes. -Trend Troponins -Echo ordered for tomorrow -recommend ice/heat to the area, [facility]-Provide handout on costochondritis upon dicharge. -02/20/2020 myocardial perfusion scan: Low risk normal treadmill EF post-stress 83% 2. Hyponatremia, mild, acute, present on admission -admitting sodium 131 -NS @150cc/hr overnight -monitor electrolytes 3. Alcohol abuse, acute on chronic, present on admission -initial ETOH 418, ammonia ordered, AST 110, ALT 81 -patient education provided regarding safe gradual alcohol cessation. 4. Essential hypertension secondary to alcohol abuse, chronic, present on a dmission -continue propranolol, lisinopril, HCTZ 5. Hyperlipidemia secondary to tobacco abuse, acute on chronic, present on admission -Patient reported to her primary that she had an allergic reaction to lipitor, and is no longer taking a statin. I strongly advise that the patient be trialed on other statins by her pcp, as an outpt. -lipids 07/2021: Total cholesterol 122, T RI to 85, LDL 152, HDL 109 -patient education regarding tobacco cessation. -Nicotine patch 6. Depression with Anxiety, chronic, present on admission -continue patient's Lexapro 7. Segmental and somatic dysfunction of abdomen another regions, somatic dysfunction of spine, sacral, Chronic low back, chronic, present on admission -continue gabapentin Code status:Full Surrogate decision maker: Spouse Melchor Velasco COVID PCR:Negative COVID vaccination: Unknown DVT/VTE prophylaxis: Lovenox 40mg & SCD's Disposition: Patient admitted for overnight observation, expected length of stay less than 2 midnights I have utilized all available immediate resources to obtain, update, or review the patient's current medications. I confirmed that the patient's advanced care plan is present, Code status is documented and/or surrogate decision maker is listed in the patient's medical record. Time Spent With Patient Critical Care time: I spent a total of [] minutes of critical care time on this patient's care today; this time is exclusive of procedural time.
[2021-10-27] MEDS: MORPHINE 2 MG/ML INJ IV (05:56)
--- NOTE | 2021-10-27 06:01 | PC.NURSE ---
Pt c/o L chest pain, worse with inspiration. Pt medicated per MAR with morphine, reports some relief.
[2021-10-27 06:57] LABS: Add Manual Diff / Slide Review NO; Basophils Absolute Auto 0 /uL (0-100); Basophils Percent Auto 0.7 % (0-2); Eosinophils Absolute Auto 0 /uL (0-450); Hemoglobin 13.1 g/dL (12.0-16.0); Lymphocytes Absolute Auto 1500 /uL (1100-4500); Lymphocytes Percent Auto 38.2 % (25-40); Mean Corpuscular HGB Conc 34.6 % (30-36); Mean Corpuscular Hemoglobin 36.3 PG (26-34); Mean Corpuscular Volume 104.9 fL (80-100); Monocytes Absolute Auto 400 /uL (0-900); Monocytes Percent Auto 9.2 % (3-14); Neutrophils Absolute Auto 2000 /uL (1500-7000); Neutrophils Percent Auto 50.9 % (50-75); Platelet Count 99 X10^3/uL (150-400); Red Blood Cell Count 3.63 X10^6/uL (4.0-5.2); Red Cell Distribution Width 14.6 % (11.6-14.8)
[2021-10-27 07:07] LABS: Alanine Aminotransferase 65 IU/L (<35); Albumin 3.9 g/dL (3.5-5.0); Albumin Globulin Ratio 1.3 (1.0-2.8); Alkaline Phosphatase 65 U/L (38-126); Aspartate Aminotransferase 93 IU/L (14-36); BUN Creatinine Ratio 11.1 (6-22); Bilirubin Total 0.6 mg/dL (0.2-1.3); Blood Urea Nitrogen 8 mg/dL (7-17); Calcium 9.1 mg/dL (8.4-10.2); Carbon Dioxide 28 mmol/L (22-32); Chloride 101 mmol/L (98-107); Estimated Glomerular Filt Rate > 60.0 mL/min (>60); Globulin 2.9 g/dL (1.7-4.1); Glucose 73 mg/dL (80-110); HEMOLYSIS < 15 (0-50); Potassium 4.2 mmol/L (3.4-5.1); Sodium 133 mmol/L (137-145); Total Protein 6.8 g/dL (6.3-8.2)
[2021-10-27 07:18] LABS: Troponin I 0.024 ng/mL (0.01-0.034)
[2021-10-27] MEDS: ASPIRIN EC 81 MG TABLET PO (09:48)
[2021-10-27] MEDS: hydroCHLOROthiazide 25 MG TABLET 12.5 MG PO (09:49)
[2021-10-27] MEDS: lisinopriL 20 MG TABLET 40 MG PO (09:49)
[2021-10-27] MEDS: GABAPENTIN 100 MG CAPSULE 400 MG PO (09:49)
[2021-10-27] MEDS: THIAMINE 100 MG TABLET PO (09:49)
[2021-10-27] MEDS: ESCITALOPRAM 10 MG TABLET 30 MG PO (09:50)
[2021-10-27] MEDS: ENOXAPARIN 40 MG/0.4 ML SYRINGE SUBCUT (09:50)
[2021-10-27] MEDS: MULTIVITAMIN 1 TABLET 1 TAB PO (09:50)
[2021-10-27] MEDS: FOLIC ACID 1 MG TABLET PO (09:50)
[2021-10-27] MEDS: CYCLOBENZAPRINE 10 MG TABLET PO (09:50)
[2021-10-27] MEDS: PROPRANOLOL ER 60 MG CAPSULE 120 MG PO (09:53)
[2021-10-27] MEDS: MAGNESIUM CHLORIDE 64 MG TABLET 128 MG PO (10:33)
[2021-10-27] MEDS: ACETAMINOPHEN 325 MG TABLET 650 MG PO (10:33)
--- NOTE | 2021-10-27 10:58 | PC.NURSE ---
Pt admitted to room 211 from ER via w/c-able to transfer herself to the bed after ambulating to the bathroom. Pt oriented to room, call light, bed controls and tv controls. SCD's on and running. IV's saline locked. Bed alarm on for safety. CIWA 4 - due to tremors in hands/arms. Pt aware she needs to call for assistance as needed and to not get up without staff assistance. Pt ate breakfast and has water to drink. Pt denies needs at this time.
--- NOTE | 2021-10-27 11:46 | PT.IIE ---
Surgical History (Last Reviewed 10/27/21 @ 01:54 [facility] Anesthesia Medical History (Last Updated 10/27/21 @ 01:53 by CHRISSIE Ag) Alcohol abuse Anorexia Anxiety Anxiety and depression Constipation Diverticulosis Eczema (~2018) Fatigue Foot pain (~1981) Hemorrhoid HTN (hypertension) Hyperlipidemia Low back pain Needs smoking cessation education Osteoarthritis Pelvic somatic dysfunction Seborrheic dermatitis of scalp Segmental and somatic dysfunction of abdomen and other regions Somatic dysfunction of spine, sacral Tobacco abuse disorder Tremor, anxiety related Vision disorder Vitamin deficiency Physical Therapy Inpatient Evaluation/Re-Eval M1 PT/OT-IP Prior Functional Status Start: 10/27/21 08:59 Freq: NEEDED Status: Active Protocol: Document 10/27/21 11:46 AW (Rec: 10/27/21 12:50 AW [id number]) Medical Review Prior Functional Status Medical History Reviewed Yes Communication Pt presents with flat affect and reports depression. She is able to make her needs known. Mobility and Gait Pt states she is independent with household mobility. She does not do much walking outside of her fifth wheel trailer but is able to get up and down the stairs. She states she does not fall much but then proceeds to relay information about at least three falls in the past one year, including a fall from the stairs. Activities of Daily Living and IADL's Pt states she is independent with ADL's. Her spouse, Melchor, takes care of shopping and assists with meal prep. Social History Household Members spouse Living Arrangements RV Number of Floors (Floors) One Floor Number of Stairs To Enter/Railing? 6 DOMI with left rail ascending Home Environment Standard Height Toilet,Walk in Shower,Built-In Shower Seat Employment Status Unemployed Additional Social History Comment Pt states she has a walking stick but rarely uses it. Her toilet is close to the sink and she can use the vanity for stability. She quit working at [employer] within the past year and reports declining mobility since then. She lives with her spouse, Melchor, in a 5th wheel trailer. Melchor works afternoons and evenings. M2 PT-IP Current Condition Start: 10/27/21 08:59 Freq: NEEDED Status: Active Protocol: Document 10/27/21 11:46 AW (Rec: 10/27/21 12:50 AW [id number]) Physical Therapy Current Condition Current Condition Evaluation Date 10/27/21 Treatment Diagnosis chest wall pain; EtOH; impaired mobility and gait Onset Date 10/26/21 M3 PT-IP Subjective Start: 10/27/21 08:59 Freq: NEEDED Status: Active Protocol: Document 10/27/21 11:46 AW (Rec: 10/27/21 12:50 AW [id number]) Subjective Physical Therapy Visit Type Type Initial Evaluation Visit Start Time 11:23 Visit Stop Time 11:46 Total Visit Minutes 23 Notes Troponins and echo have been WNL. Pt reporting anterior chest wall pain which is exacerbated with deep breathing and somewhat with overhead movement of her arms. Number of MINI SHIFTER Visits 0 Physical Therapy Visit Comments Patient Comments Pt is willing to participate with PT Patient Goals Return home with spouse support. Therapy Pain Assessment Pain When Pain Assessed During Mobility Pain Present Pain Present Pain Reported Location Chest Intensity 6 Scale Used Numeric (0 - 10) Pain Management Techniques Distraction,Modification of Treatment M4 PT-IP Mobility and Gait Start: 10/27/21 08:59 Freq: NEEDED Status: Active Protocol: Document 10/27/21 11:46 AW (Rec: 10/27/21 13:17 AW [id number]) PT-Bed Mobility Assessment Supine to Sit Supine to Sit Standby Assistance Sit to Supine Sit to Supine Standby Assistance Scooting Scooting to Edge of Bed Standby Assistance PT-Transfer Assessment Sit to and From Stand Sit to and from Stand Contact Guard Assistance,1 Person Assistance,Use of Upper Extremities Equipment Transfer Assistive Device None,Gait Belt Orthotic/Prosthetic Devices or Brace: No Transfers Transfer Destination Bed,Chair Transfer Technique pt ambulated without AD Transfer Ability Level of Assist Contact Guard Assistance Comments Mobility Comments Pt was lying in bed as PT arrived. BP 167/93 HR 75. She reported 5/10 chest wall pain at rest but was willing to get up. She sat EOB SBA and stood CGA with initial and ongoing unsteadiness. She transferred to the chair CGA before standing again. She walked to the window and then out to the halls 90 feet to the stairs, completed stairs assessment, and returned to the room all SBA with CGA needed for lateral LOB x 2. Pt returned to supine SBA and was left with call light and tray table in reach, seizure pads and bed alarm on. Gait Assessment Gait Gait Assistance Required: Standby Assistance,Contact Guard Assist Distance (Feet) 180 Assistive Devices Assistive Device None,Gait Belt Orthotic/Prosthetic Devices or Brace: No Gait Deviations General Gait Pattern Ataxic,Decreased Stride Length ,Decreased Feet Clearance,Wide Based Gait Factors Limiting Gait Function Factors Limiting Gait Function Decreased Activity Tolerance, Decreased Strength, Incoordination,Poor Balance, Poor Safety Awareness Comments Gait Comments Pt ambulates with WBOS and impaired coordination leading to inconsistent strides and lateral LOB x 2 requiring CGA for recovery. Stair Climbing Assessment Evaluation Level of Assist On Stairs Standby Assistance,Contact Guard Assistance,1 Person Assistance Devices Stair Climbing Assistive Devices Left Railing,Right Railing Technique/Endurance Stair Climbing Direction Ascend and Descend Stair Climbing Technique Step Over Step Number of Steps Climbed 3 Query Text: Stair Climbing Set # Repetitions (reps) 1 Comments Stair Climbing Comments SBA to ascend, CGA to descend with bilateral rails. PT-Balance Assessment Sitting Balance and Reactions Static Sitting Balance Ability Good Dynamic Sitting Balance Ability Good Standing Balance and Reactions Static Standing Balance Ability Fair Dynamic Standing Balance Ability Fair Device Used no AD Balance Tests Single Limb Standing unable without UE support Romberg can not maintain NBOS EO M5 PT-IP Objective Assessments Start: 10/27/21 08:59 Freq: NEEDED Status: Active Protocol: Document 10/27/21 11:46 AW (Rec: 10/27/21 13:17 AW [id number]) Orientation Orientation/Cognition Level of Alertness Confusional State Orientation Name,Month,Place,Situation Gross Range of Motion Upper Extremity ROM Assessment Within Functional Limits Lower Extremity ROM Assessment Within Functional Limits Strength Lower Extremity Strength Hip 4-/5 Knee 4/5 Ankle 4-/5 Coordination Assessment Gross Coordination Gross Coordination Impaired Assessment Finger to Nose Test Minimal Impairment Pronation/Supination Test Minimal Impairment Heel on Abbasi Test Minimal Impairment Muscle Tone Muscle Tone WNL No Muscle Tone Location Bilateral Manifistation of Tone Resting Tremors,Intention Tremors Comments Muscle Tone Comments All four extremities tremulous on assessment. M6 PT-IP Treatment Start: 10/27/21 08:59 Freq: NEEDED Status: Active Protocol: Document 10/27/21 11:46 AW (Rec: 10/27/21 13:17 AW [id number]) Physical Therapy Treatment Education Education Provided Safety M7 PT-IP Assessment and Plan Start: 10/27/21 08:59 Freq: NEEDED Status: Active Protocol: Document 10/27/21 11:46 AW (Rec: 10/27/21 13:17 AW [id number]) PT Summary Assessment and Plan Potential Rehabilitation Potential Fair Status of Condition at Evaluation Evolving Summary Impairments Pain,Strength,Balance, Coordination,Cognition,Bed Mobility,Transfers,Gait Assessment Summary Shadi is a 61 yo woman admitted with chest wall pain. EtOH was 418 on admission. Pt reports independent mobility in her fifth wheel trailer but states she does not leave the trailer often. She admits to falls history including falls from the stairs. On assessment , pt has tremors in all extremities, her coordination is impaired, as well as her static and dynamic balance. Pt required SBA to CGA for ambulation without assistive device and with stairs. Chest wall pain does not radiate. It does increase with deep breaths and upper extremity elevation but not necessarily with exertion. Pt is not SOB during exertion. Pain symtpoms are consistent with possible costochondritis. Balance impairments are likely baseline. Pt will be safe to return home once medically stable. Goals Bed Mobility Goal Independent Transfer Goal Independent Gait Goal Standby Assistance Gait Distance 200 Other Goals - up/down 6 steps with left rail ascending SBA Days to Meet Goals 3 Frequency of Treatment Frequency Of Treatment Once a Day Treatment Plan Physical Therapy Treatment Plan Bed Mobility Training,Transfer Training,Gait Training, Therapeutic Exercise,Balance Retraining,Discharge Planning, Hot or Cold Pack,Neuromuscular Re-ed,Coordination Retraining Other Recommendations and Next Treatment progress gait training without Focus AD; re-visit stairs Precautions Other Precautions falls; seizure precautions Recommendations To Nursing Amount of Assist Needed Standby Assistance,1 Person Assist Discharge Recommendations PT Discharge Recommendations Home with Assistance Transportation Needs at Discharge Private Vehicle
[2021-10-27] MEDS: PANTOPRAZOLE 40 MG VIAL IV (12:43)
--- NOTE | 2021-10-27 13:30 | PC.NURSE ---
Pt is dressed and ready for discharge home with Spouse. Care Management has talked with Pt about alcohol rehab and inpatient/outpatient. Dr. Eagle discussed rehab with Pt - Pt declined at this time. RN also discussed stopping drinking and Pt stated she was not ready. Advised Pt to work with their doctor to assist stopping drinking to manage symptoms. IV's and tele removed. Went over d/c instructions with Pt and Spouse-discussed d/c meds, time of last dose, reminded Pt to take prescribed medications as ordered. Encouraged Pt to move carefully and slowly to decrease falls and to consider a walker. Pt and spouse denied further questions and Pt was taken out via w/c by BUSINESS MACHINES TEACHER to POV with Spouse and all belongings.
--- NOTE | 2021-10-27 13:53 | CM.DANOTE ---
DCP/Assessment: Reviewed chart. Patient is a 61yr old female admitted to [facility] with chest pain. PCP listed is Dr. Brumfield. Primary payor is 1)[place] [employer]. AIR SAMPLER met with patient and spouse at bedside explained CM/SW role. Patient reports that she is completely I in all ADL's. Patient does admit to drinking alcohol daily. Patient and spouse both admit to wanting to get patient some help. AIR SAMPLER encouraged patient and spouse to call payor to get list of contracted providers. In addition, provided them with community resources for assistance. It is anticipated that patient will d/c today after work up completed. No additional needs identified. P: Home today. 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 No History Provided By Patient,Family Member,Medical Record Prior Living Arrangements RV Household Members spouse Type of transporation used prior to Drives own vehicle admit Independent with ADL's Yes Is patient alert and oriented? Yes Caregiver for Another No Barriers to Discharge No Discharge Plan Home Transportation Arrangement Spouse to provide transport. Referrals Initiated Other Additional Comment Provided patient with community resources for alcholic abuse assistance. Review Status In Process Next Review Type Continued Stay Review
--- NOTE | 2021-10-27 16:36 | P.DS_ITS ---
History of Present Illness History of Present Illness Chief complaint: chest pain Narrative: Per Camryn Toscano: Shadi Young is a 61-year-old female history of significant alcohol abuse, tobacco abuse, hypertension, depression and presented today with sudden onset of left-sided chest pain.?Upon admit interview the patient is unable to recall when the pain began or what she was doing. Her spouse reported to the ED that the patient was resting in bed when the pain began. Spouse reported to the ED that his has been falling a little bit more today. And on presentation to the ED the patient was mildly confused but awake alert answering questions with slurring of speech. The patients pain comes and goes, located left midclavicular line 5th intercostal space, without radiation. The pain varies between sharp and achy, worsens with deep breathing, raising the left arm, twisting movement of upper body, and with palpation.?The patient reports that nothing improves the pain, pt was given nitro & MS in ED, denies Patient denies history of coronary artery disease, shortness of breath, abdominal pain, nausea, vomiting, diaphoresis, headache, changes in vision, weakness, numbness, swelling of extremities, fever, body aches, chills, recent illness injury or trauma.? Patient endorses regular heavy alcohol intake, and that her last drink was at 3:00 p.m. earlier today. Patient's vitals upon admit were stable temp 96.1?, BP 142/78, HR 60, RR 22, O2 saturation 97% on room air.? Patient has a platelet count 127, MCV 103.9, MCH 36.7.? Hyponatremia sodium 131, chloride 93, AST 110, ALT 81.? Patient's troponins were mildly elevated but stable likely represent baseline troponin 1.? 0.030, troponin 2.? 0.027, EtOH 418.? Patient's 1st EKG sinus bradycardia with a rate of [address] or T-wave changes repeat EKG is normal sinus rhythm with a rate of [address] or T-wave changes.? Patient's head CT was negative for any acute intracranial processes., patient's chest abdomen pelvis CT was negative for any pulmonary embolisms, patient's chest x-ray was negative for any acute cardiopulmonary processes.? Admitted for chest pain rule out. Discharge Providers Provider Date of admission: 10/26/21 20:59 Discharge Date: 10/27/21 Primary care physician: Kali Brumfield DO Consults: 10/26/21 21:14 Consult to Dietitian, Adult Routine Comment: Reason For Exam: ETOH abuse 10/27/21 01:06 Consult to Physical Therapy Evaluate & Treat Comment: Evaluate mobility /costocondritis Physician Instructions: Evaluate and Treat Discharge provider: Ralph Eagle MD Summary Hospital Course Discharge Diagnosis: 1. Atypical chest pain 2. Mild hyponatremia 3. Alcohol abuse 4. Hypertension 5. Hyperlipidemia 6. Tobacco abuse, smoker's cough 7. Depression with anxiety 8. Chronic low back pain 9. Hiatal hernia with eccentric thick esophagus 10. Pulmonary nodules. Hospital Course: Ms. Young came in to the hospital with chest pain. It was located below her left breast. No shortness of breath, no radiation. With movement in bed it did change the pain. Pain was not reproducible. She has had this pain previously. Troponins peaked at 0.027, lower than previously. EKG showed no acute changes. Last stress test was low risk and performed less than 2 years ago in January 2020. ECHO showed no acute abnormalities. CT showed a hiatal hernia with mild eccentric thickening of the distal esophagus. Her symptoms are likely related to this finding, possibly gastritis and reflux worsened with alcohol. She was ordere for a PPI. She should consider referral to GI for endoscopy for further evaluation. She has small pulmonary nodules and these should be followed. She stated she was not yet ready to quit drinking. She did not want inpatient treatment. She was not sure she would want outpatient treatment either, and wanted to think about it at home. She was informed not to abruptly stop alcohol due to risks of sudden withdrawal. Discharge time: 35 minutes Exam Vital Signs (past 8 hours): - 10/27/21 08:44 10/27/21 09:14 10/27/21 09:36 Temperature 94 F L Pulse Rate 61 99 H Respiratory Rate 13 Blood Pressure 195/98 H Pulse Oximetry 94 94 94 10/27/21 09:49 Temperature Pulse Rate Respiratory Rate Blood Pressure 195/98 H Pulse Oximetry Oxygen Delivery Method Room Air Oxygen Flow Rate 0 Narrative Exam Narrative: GEN: no acute distress CV: regular rate and rhythm PULM: clear bilaterally ABD: soft, nontender, nondistended, no organomegaly Objective Labs Result Diagrams: 10/27/21 06:40 10/27/21 06:40 Labs: Laboratory Results - last 24 hr 10/26/21 10/26/21 10/26/21 18:35 18:35 18:35 WBC 6.3 RBC 4.33 Hgb 15.9 Hct 45.0 MCV 103.9 H MCH 36.7 H MCHC 35.3 RDW 14.3 Plt Count 127 L Neut % (Auto) 38.2 L Lymph % (Auto) 50.0 H [place] % (Auto) 9.9 Eos % (Auto) 1.2 L Baso % (Auto) 0.7 Neut # (Auto) 2400 Lymph # (Auto) 3100 [place] # (Auto) 600 Eos # (Auto) 100 Baso # (Auto) 0 PT 9.8 L INR 0.9 APTT 33 Sodium 131 L Potassium 4.9 Chloride 93 L Carbon Dioxide 30 BUN 10 Creatinine 0.71 Estimated GFR > 60.0 BUN/Creatinine Ratio 14.1 Glucose 97 Calcium 9.6 Magnesium Total Bilirubin 0.6 AST 110 H ALT 81 H Alkaline Phosphatase 117 Ammonia Total Creatine Kinase 61 CK-MB (CK-2) TNP CK-MB (CK-2) Rel Index TNP Troponin I 0.030 NT-Pro-B Natriuret Pep 109 Total Protein 8.9 H Albumin 4.9 Globulin 4.0 Albumin/Globulin Ratio 1.2 Lipase 206 Ethyl Alcohol 418 H* SARS-CoV-2 (PCR) 10/26/21 10/26/21 10/26/21 18:38 18:38 19:36 WBC RBC Hgb Hct MCV MCH MCHC RDW Plt Count Neut % (Auto) Lymph % (Auto) [place] % (Auto) Eos % (Auto) Baso % (Auto) Neut # (Auto) Lymph # (Auto) [place] # (Auto) Eos # (Auto) Baso # (Auto) PT INR APTT Sodium Potassium Chloride Carbon Dioxide BUN Creatinine Estimated GFR BUN/Creatinine Ratio Glucose Calcium Magnesium 1.7 Total Bilirubin AST ALT Alkaline Phosphatase Ammonia Total Creatine Kinase CK-MB (CK-2) CK-MB (CK-2) Rel Index Troponin I NT-Pro-B Natriuret Pep Cancelled Total Protein Albumin Globulin Albumin/Globulin Ratio Lipase Ethyl Alcohol SARS-CoV-2 (PCR) Negative 10/26/21 10/26/21 10/27/21 20:25 21:35 06:40 WBC 4.0 L RBC 3.63 L Hgb 13.1 Hct 38.0 MCV 104.9 H MCH 36.3 H MCHC 34.6 RDW 14.6 Plt Count 99 L Neut % (Auto) 50.9 Lymph % (Auto) 38.2 [place] % (Auto) 9.2 Eos % (Auto) 1.0 L Baso % (Auto) 0.7 Neut # (Auto) 2000 Lymph # (Auto) 1500 [place] # (Auto) 400 Eos # (Auto) 0 Baso # (Auto) 0 PT INR APTT Sodium Potassium Chloride Carbon Dioxide BUN Creatinine Estimated GFR BUN/Creatinine Ratio Glucose Calcium Magnesium Total Bilirubin AST ALT Alkaline Phosphatase Ammonia < 9 L Total Creatine Kinase CK-MB (CK-2) CK-MB (CK-2) Rel Index Troponin I 0.027 NT-Pro-B Natriuret Pep Total Protein Albumin Globulin Albumin/Globulin Ratio Lipase Ethyl Alcohol SARS-CoV-2 (PCR) 10/27/21 06:40 WBC RBC Hgb Hct MCV MCH MCHC RDW Plt Count Neut % (Auto) Lymph % (Auto) [place] % (Auto) Eos % (Auto) Baso % (Auto) Neut # (Auto) Lymph # (Auto) [place] # (Auto) Eos # (Auto) Baso # (Auto) PT INR APTT Sodium 133 L Potassium 4.2 Chloride 101 Carbon Dioxide 28 BUN 8 Creatinine 0.72 Estimated GFR > 60.0 BUN/Creatinine Ratio 11.1 Glucose 73 L Calcium 9.1 Magnesium Total Bilirubin 0.6 AST 93 H ALT 65 H Alkaline Phosphatase 65 D Ammonia Total Creatine Kinase CK-MB (CK-2) CK-MB (CK-2) Rel Index Troponin I 0.024 NT-Pro-B Natriuret Pep Total Protein 6.8 Albumin 3.9 Globulin 2.9 Albumin/Globulin Ratio 1.3 Lipase Ethyl Alcohol SARS-CoV-2 (PCR) [facility] Medical History (Updated 10/27/21 @ 01:53 by CHRISSIE Ag) Alcohol abuse Anorexia Anxiety Anxiety and depression Constipation Diverticulosis Eczema (~2018) Fatigue Foot pain (~1981) Hemorrhoid HTN (hypertension) Hyperlipidemia Low back pain Needs smoking cessation education Osteoarthritis Pelvic somatic dysfunction Seborrheic dermatitis of scalp Segmental and somatic dysfunction of abdomen and other regions Somatic dysfunction of spine, sacral Tobacco abuse disorder Tremor, anxiety related Vision disorder Vitamin deficiency Surgical History Anesthesia History of bunionectomy (~1981) History of carpal tunnel release (~1997) Status post foot surgery Status post hysterectomy (~1989) Family History Mother Cancer Brother Colon cancer Brother Liver cancer Social History household members: spouse Smoking Status: Current every day smoker Tobacco: How many years used: 50 quit status: not considering quitting second hand exposure: No alcohol intake: current substance use type: does not use and former substance user Discharge Plan Discharge Plan Patient Disposition: Home Provider Discharge Comment: Ms. Young came to the hospital with chest pain. She had workup which showed no changes to her heart. She did have concern for reflux and irritation in her esophagus probably due to alcohol. She was given a medi cine to reduce acid levels in her stomach. Discharge orders & Medications Prescriptions: New folic acid 1 mg Tablet 1 mg PO DAILY Qty: 30 0RF multivitamin with folic acid [Tab-A-Sukhwinder] 400 mcg Tablet 1 tab PO DAILY Qty: 30 0RF thiamine mononitrate (vit B1) 100 mg Tablet 100 mg PO DAILY Qty: 30 0RF pantoprazole 40 mg tablet,delayed release (DR/EC) 40 mg PO DAILY Qty: 30 0RF Continued gabapentin 100 mg capsule 400 mg PO TID Qty: 120 0RF Rx Instructions: Start with 1 cap daily and increase by 1 cap every day up to best tolerated and most effective dose escitalopram oxalate 10 mg tablet 30 mg PO DAILY Qty: 90 2RF lisinopril 40 mg tablet 40 mg PO DAILY 90 Days Qty: 90 3RF propranolol 120 mg capsule,extended release 24 hr 120 mg PO BID Qty: 180 1RF hydrochlorothiazide 12.5 mg tablet 12.5 mg PO DAILY Qty: 90 3RF betamethasone dipropionate 0.05 % cream 1 applic TOP BID PRN (Reason: rash) Qty: 45 1RF Follow up/Referrals: Kali Brumfield DO [Primary Care Provider] - Discharge Data Primary Care Provider: Kali Brumfield Attending Provider: Camryn Toscano Quality VTE Deep Vein Thrombosis/Pulmonary Embolism Present on Admission: No
== END 2021-10-27 13:41 | disposition home or self-care (01) ==
LOC: ED 18:44 → AC 21:00
PROVIDERS: Admitting Provider Nurse Practitioner Family; Emergency Provider Emergency Medicine; PCP Family Medicine; Visit Provider Nurse Practitioner Family
DX: R07.9 Chest pain, unspecified (principal); I10 Essential (primary) hypertension; F32.9 Major depressive disorder, single episode, unspecified; F10.10 Alcohol abuse, uncomplicated; F17.210 Nicotine dependence, cigarettes, uncomplicated; E87.1 Hypo-osmolality and hyponatremia; E78.5 Hyperlipidemia, unspecified; J41.0 Simple chronic bronchitis; F41.9 Anxiety disorder, unspecified; M54.50 Low back pain, unspecified; G89.29 Other chronic pain; K44.9 Diaphragmatic hernia without obstruction or gangrene; R91.8 Other nonspecific abnormal finding of lung field; Z91.81 History of falling; Z20.822 Contact with and (suspected) exposure to COVID-19
CPT/HCPCS: 36415; 70450; 71045; 71275; 74174; 80053; 80320; 81003; 82140; 82550; 83690; 83735; 83880; 84484; 85025; 85610; 85730; 87635; 93005; 93306; 94760; 96361; 96372; 96374; 96375; 96376; 97162; 99285; C9803; G0378; C9113; J1650; J1885; J2270; Q9967

== ENCOUNTER → 2024-02-28 15:15 | Outpatient (CLI) | payer OTHER, SELFPAY ==
[2021-10-27 10:41] VITALS: BMI 24.0
[2024-02-28 16:19] LABS: Add Manual Diff / Slide Review NO; Basophils Absolute Auto 0 /uL (0-100); Basophils Percent Auto 0.5 % (0-2); Eosinophils Absolute Auto 0 /uL (0-450); Eosinophils Percent Auto 0.1 % (2-4); Hematocrit 37.5 % (36-46); Hemoglobin 13.2 g/dL (12.0-16.0); Lymphocytes Absolute Auto 500 /uL (1100-4500); Lymphocytes Percent Auto 10.8 % (25-40); Mean Corpuscular HGB Conc 35.2 % (30-36); Mean Corpuscular Hemoglobin 38.7 PG (26-34); Mean Corpuscular Volume 109.9 fL (80-100); Monocytes Absolute Auto 200 /uL (0-900); Monocytes Percent Auto 5.6 % (3-14); Neutrophils Absolute Auto 3700 /uL (1500-7000); Platelet Count 39 X10^3/uL (150-400); Red Blood Cell Count 3.41 X10^6/uL (4.0-5.2); Red Cell Distribution Width 14.4 % (11.6-14.8); White Blood Cell Count 4.4 X10^3/uL (4.5-11.0)
[2024-02-28 16:37] LABS: HEMOLYSIS < 15 (0-50); Iron 124 ug/dL (37-170)
[2024-02-28 16:45] LABS: Alanine Aminotransferase 43 IU/L (<35); Albumin 4.6 g/dL (3.5-5.0); Albumin Globulin Ratio 1.2 (1.0-2.8); Alkaline Phosphatase 116 U/L (38-126); Aspartate Aminotransferase 109 IU/L (14-36); BUN Creatinine Ratio 24.5 (6-22); Bilirubin Total 2.3 mg/dL (0.2-1.3); Blood Urea Nitrogen 13 mg/dL (7-17); Calcium 9.7 mg/dL (8.4-10.2); Carbon Dioxide 28 mmol/L (22-32); Chloride 92 mmol/L (98-107); Cholesterol 204 mg/dL (140-199); Estimated Glomerular Filt Rate > 60 mL/min (>60); Globulin 3.8 g/dL (1.7-4.1); Glucose 119 mg/dL (80-110); HDL Cholesterol 100 mg/dL (40-60); HEMOLYSIS < 15 (0-50); LDL Cholesterol Calculated 84 mg/dL (<100); Potassium 3.7 mmol/L (3.4-5.1); Sodium 133 mmol/L (137-145); Total Protein 8.4 g/dL (6.3-8.2); Triglycerides 102 mg/dL (35-150)
[2024-02-28 16:52] LABS: Percent Iron Saturation 51 % (15-50); Total Iron Binding Capacity 245 ug/dL (265-497); Transferrin 179 mg/dL (206-381)
[2024-02-28 17:31] LABS: Macrocytosis 3+; Platelet Estimate Decreased on smear
== END ==
PROVIDERS: PCP Family Medicine; Referring Provider Family Medicine; Visit Provider Family Medicine
DX: K70.10 Alcoholic hepatitis without ascites (principal); F10.10 Alcohol abuse, uncomplicated; Z72.0 Tobacco use; I10 Essential (primary) hypertension; E78.5 Hyperlipidemia, unspecified
CPT/HCPCS: 36415; 80053; 80061; 83540; 83550; 85025

== ENCOUNTER → 2024-05-31 13:06 | Outpatient (CLI) | payer MEDICARE, OTHER, SELFPAY ==
[2021-10-27 10:41] VITALS: BMI 24.0
--- NOTE | 2024-05-31 | DI.US.S_ITS ---
LIMITED ULTRASOUND OF LEFT BREAST: 05/31/2024 CLINICAL: Patient returns today to evaluate a focal asymmetry in the left breast. Comparison is made to exams dated: 05/31/2024 mammogram - [facility], 03/09/2007 mammogram, 02/08/2006 mammogram, 01/19/2005 mammogram, 03/18/2004 mammogram, and 01/02/2003 mammogram - [facility]. Color flow and real-time ultrasound of the left breast 3 o'clock region were performed. There is a 0.7 cm x 0.5 cm x 0.8 cm oval mass with an indistinct margin in the left breast at 3 o'clock posterior depth. This oval mass is hypoechoic This correlates with mammography findings. Color flow imaging demonstrates that there is vascularity present. No abnormal lymph nodes are seen in the axilla. IMPRESSION: SUSPICIOUS OF MALIGNANCY Left breast 0.8 cm oval mass at 3 o'clock in the retroareolar region. Finding is suspicious. An ultrasound guided biopsy is recommended. Findings and recommendations were discussed with the patient by Dr. Amaro during today's examination. This exam was interpreted at Station ID: [id number]. Electronically Signed By: Jackie Pineda M.D., Ph.D. eb/:05/31/2024 15:10:02 letter sent: Biopsy Required Ultrasound BI-RADS: 4c High suspicion of malignancy
--- NOTE | 2024-05-31 13:11 | DI.US.S_ITS ---
LIMITED ULTRASOUND OF RIGHT BREAST: 05/31/2024 CLINICAL: Palpable right breast lump. Comparison is made to exams dated: 05/31/2024 mammogram - [facility], 03/09/2007 mammogram, 02/08/2006 mammogram, 01/19/2005 mammogram, 08/21/2003 mammogram, and 01/02/2003 mammogram - [facility]. Color flow and real-time ultrasound of the right breast 9 o'clock region were performed. There is a 2.2 cm x 2 cm x 1.9 cm irregular mass with a spiculated margin in the right breast at 9 o'clock, 3 cm from the nipple. This irregular mass is hypoechoic. This correlates as palpated and with mammography findings. Color flow imaging demonstrates that there is vascularity present. No abnormal lymph nodes are seen in the axilla. IMPRESSION: HIGHLY SUGGESTIVE OF MALIGNANCY Right breast 2.2 cm spiculated mass at 9 o'clock corresponding to area of clinical palpable concern. Finding is highly suspicious. An ultrasound guided biopsy is recommended. Findings and recommendations were discussed with the patient by Dr. Amaro during today's examination. This exam was interpreted at Station ID: [id number]. Electronically Signed By: Jackie Pineda M.D., Ph.D. eb/:05/31/2024 15:05:20 letter sent: Biopsy Required Ultrasound BI-RADS: 5 Highly suggestive of malignancy
--- NOTE | 2024-05-31 13:11 | DI.MG.S_ITS ---
BILATERAL DIGITAL DIAGNOSTIC MAMMOGRAM 3D/2D: 05/31/2024 CLINICAL: Palpable right breast lump. Baseline by default. No prior exams were available for comparison. Both breasts are heterogeneously dense, which may obscure small masses (category c / 51-75% glandular tissue). Of note, suboptimal positioning due to patient factors and bilateral MLO views were unable to be acquired. There is a 2.7 cm irregular high density mass with a spiculated margin in the right breast at 9 o'clock posterior depth. This correlates as palpated. There is a 0.7 cm oval mass with a circumscribed margin in the left breast at 3 o'clock anterior depth. No other significant masses or calcifications are seen in either breast. IMPRESSION: INCOMPLETE: NEEDS ADDITIONAL IMAGING EVALUATION 1) Right breast 2.7 cm irregular mass at 9 o'clock posterior depth. An ultrasound is recommended for further evaluation and is scheduled to immediately follow this examination. 2) Left breast 0.7 cm oval mass 3 o'clock anterior depth. An ultrasound is recommended for further evaluation and is scheduled to immediately follow this examination. Based on the Tyrer Cuzick model (a risk assessment model) the patient's lifetime risk is 15.1% and her 10 year risk is 7.5%. According to the ACR, ACS, and NCCN guidelines, an annual breast MRI exam along with mammogram is recommended if the patient's lifetime risk is 20% or greater. This exam was interpreted at Station ID: [id number]. NOTE: For mammograms, a report in lay terms will be sent to the patient. Approximately 15% of breast malignancies will not be visualized mammographically. In the management of a palpable breast mass, a negative mammogram must not discourage biopsy of a clinically suspicious lesion. Electronically Signed By: Jackie Pineda M.D., Ph.D. eb/:05/31/2024 15:06:58 ACR BI-RADS Category 0: Incomplete 3340F
== END ==
LOC: MAMMO 13:10
PROVIDERS: PCP Family Medicine; Referring Provider Family Medicine; Visit Provider Family Medicine
DX: R92.8 Other abnormal and inconclusive findings on diagnostic imaging of breast (principal); N63.15 Unspecified lump in the right breast, overlapping quadrants; N63.25 Unspecified lump in the left breast, overlapping quadrants
CPT/HCPCS: 76642; 77066; G0279

== ENCOUNTER → 2024-06-16 | Outpatient (CLI) | payer MEDICARE, OTHER, SELFPAY ==
[2021-10-27 10:41] VITALS: BMI 24.0
--- NOTE | 2024-06-16 | PATH_ITS ---
[facility] Accession Number: [id number] No. of containers..01 Tissue . 01 Material submitted: . breast - RIGHT BREAST MASS 9:00 6CMFN . 01 Diagnosis: A. 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 Largest focus: 4 mm. Negative for lymphovascular invasion Negative for ductal carcinoma in situ (DCIS). Adjacent fibrocystic change. - Predictive marker immunohistochemical studies: Estrogen receptor (SP1): Positive (20%, zgvxewyzucul-zs-pumjus intensity). Progesterone receptor (1E2): Negative (<1%). Her2 (4B5): Positive for overexpression (3+). Ki67: 20%. - Internal controls for ER and DE are positive. [facility] 06/20/2024 [facility]7 Local . 01 Comment: Histologic grade ([place] histologic score): Intermediate grade, 2 of 3, (score 6 of 9). Glandular/tubular differentiation: 3 of 3. Nuclear pleomorphism: 2 of 3. Mitotic rate: 1 of 3. In order to characterize this process more fully, immunohistochemical stains with adequate controls were indicated and show invasive carcinoma cells to be positive for CK7, and E-cadherin; while negative for myoepithelial cells with negative p63, and myosin, supporting the above diagnosis. - As part of ongoing quality compliance consultant, the case was reviewed by Dr. Ashlee Farris who agrees with the interpretation. - The findings were discussed with Dr. Brumfield at 3:20 PM, on 06-20-2024. Technical Note: The immunohistochemical stains reported were performed at [facility] ([address], [facility] [address]). They were developed and their performance characteristics determined by [employer] They have not been cleared or approved by the U.S. Food and Drug Administration, although such approval is not required for analyte-specific reagents of this type. - Cold ishchemic time was not provided. The scoring criteria for breast biomarkers by immunohistochemistry is based on the ASCO/CAP guidelines (Elba AC et al, J Clin Oncol: 2017Apr 05;36(20):3633-7742 and Daniella MANCIA et al, Arch Pathol Lab Med: 2009;134(6):907-22). Deparaffinized sections of formalin fixed tissue (along with appropriate positive controls) are incubated with the above antibody(s). Using the automated [employer] stainer, tissue is incubated with the designated antibody which is then localized by a non-biotin, dual polymer detection system. The external controls are reviewed for appropriate reactivity and found to be adequate. Results on the target cell population are indicated above. These tests have not been validated on decalcified or alcohol-based fixed tissue. This test was developed and its performance characteristics determined by [employer]. It has not been cleared or approved by the U.S. Food and Drug Administration. The FDA has determined that such clearance or approval is not necessary. This test is used for clinical purposes. It should not be regarded as investigational or for research. . 01 Electronically signed: . Val Gagnon MD, Pathologist NPI- [id number] . 01 Gross description: . Received in formalin with two patient identifiers and right, are yellow, multiple du, soft tissue fragments admixed with hemorrhagic material aggregating to 2.1 x 1.5 x 0.3 cm, inked green, filtered, and submitted entirely in A1. . Fixation: The specimen was removed on 06/16/2024 at 1034, time not provided; cold ischemic time cannot be calculated; and total fixation time is approximately 52 hours. ([id number]) /MRV 06/18/2024 1029 Local . 01 Pathologist provided ICD-10: R92.8 . 01 CPT . 588851, S56355, C43654, 294291, 227525, 052507, 535454 Performed at: [address], [place], [place] [id number] MD Grayson Quispe MD Phone: [phone]
--- NOTE | 2024-06-16 | DI.US.S_ITS ---
ULTRASOUND GUIDED BIOPSY RIGHT BREAST WITH MARKING DEVICE INSERTED AND POST DIGITAL MAMMOGRAPHIC IMAGIN06/16/2024 CLINICAL: Right breast mass. PATIENT CONSENT: Risks (minor bleeding, infection, vasovagal reaction and repeat procedure), benefits and alternatives were explained to the patient and written informed consent was obtained. Correlation is made to exams dated: 05/31/2024 ultrasound, 05/31/2024 mammogram - , 03/09/2007 mammogram, 02/08/2006 mammogram, and 01/19/2005 mammogram - [facility]. An ultrasound guided biopsy using real-time ultrasound was performed for the 2.2 cm x 2 cm x 1.9 cm indistinct irregular shaped mass located in the right breast at 9 o'clock posterior depth 3 cm from the nipple. This was described on the previous ultrasound report. The skin was prepped in the usual manner. Local anesthetic was administered to the access site. A skin soo was made in the breast. The abnormality was approached from the lateral aspect. A 14 gauge biopsy needle was placed adjacent to the abnormality under ultrasound guidance. Once the needle was documented to be in the correct location, three cores were obtained using [employer] Elevation. The patient received additional local anesthetic during the procedure. A vision clip was inserted into the biopsy cavity. A skin adhesive and a sterile dressing were applied to the access site. Post procedure digital mammographic imaging demonstrates the location device at the targeted area. The specimens were sent to the laboratory for pathological analysis. IMPRESSION: ULTRASOUND GUIDED BIOPSY MALIGNANT Ultrasound guided biopsy of the 2.2 cm x 2 cm x 1.9 cm mass in the right breast at 9 o'clock posterior depth 3 cm from the nipple was successful with no apparent post procedure complications. Pathology indicates malignant invasive ductal carcinoma (ID). Pathology results are concordant with imaging findings. A surgical/oncologic consultation is recommended. This exam was interpreted at Station ID: [id number]. Jacobo Pineda M.D., Ph.D. [facility] [place]/:07/07/2024 15:46:51
--- NOTE | 2024-06-16 | PATH_ITS ---
[facility] Accession Number: [id number] No. of containers..01 Tissue . 01 Material submitted: . breast - LEFT BREAST MASS 3:00 . 01 Diagnosis: A. LEFT BREAST, MASS AT 3 O'CLOCK, CORE BIOPSY: Sclerosing adenosis with calcifications, fibrocystic changes, negative for atypia, in situ, or invasive carcinoma, see comments. [facility] 06/20/2024 1522 Local . 01 Comment: In order to characterize this process more fully, immunohistochemical stains with adequate controls were indicated and show the areas of interest to be positive for myoepithelial cells with positive p63, and myosin, supportive of the above benign diagnosis. - As part of ongoing advanced quality engineer, the case was reviewed by Dr. Ashlee Farris who agrees with the interpretation. Technical Note: The immunohistochemical stains reported were performed at [facility] ([address], [facility] [address]). They were developed and their performance characteristics determined by [employer] They have not been cleared or approved by the U.S. Food and Drug Administration, although such approval is not required for analyte-specific reagents of this type. . 01 Electronically signed: . Val Gagnon MD, Pathologist NPI- [id number] . 01 Gross description: . Received in formalin with two patient identifiers and left, are multiple du soft tissue fragments admixed with hemorrhagic material aggregating to 1.9 x 1.9 x 0.3 cm, inked blue and submitted entirely in A1. . Fixation: The specimen was removed on 06/16/2024 at 1033; time in formalin not provided; cold ischemic time cannot be calculated; and total fixation time is approximately 52 hours. ([id number]) /MRV 06/18/2024 0933 Local . 01 Pathologist provided ICD-10: R92.8 . 01 CPT . 752247, J52982, G41638 Performed at: [address] [address], [place], [place] [id number] MD Grayson Quispe MD Phone: [phone]
--- NOTE | 2024-06-16 09:09 | DI.US.S_ITS ---
ULTRASOUND GUIDED BIOPSY LEFT BREAST WITH MARKING DEVICE INSERTED AND POST DIGITAL MAMMOGRAPHIC IMAGIN06/16/2024 CLINICAL: Left breast mass. PATIENT CONSENT: Risks (minor bleeding, infection, vasovagal reaction and repeat procedure), benefits and alternatives were explained to the patient and written informed consent was obtained. Correlation is made to exams dated: 05/31/2024 ultrasound, 05/31/2024 mammogram - [facility], 03/09/2007 mammogram, and 02/08/2006 mammogram - [facility]. An ultrasound guided biopsy using real-time ultrasound was performed for the 0.7 cm x 0.6 cm x 0.6 cm oval mass located in the left breast at 3 o'clock anterior depth. This was described on the previous ultrasound report. The skin was prepped in the usual manner. Local anesthetic was administered to the access site. A skin soo was made in the breast. The abnormality was approached from the lateral aspect. A 14 gauge biopsy needle was placed adjacent to the abnormality under ultrasound guidance. Once the needle was documented to be in the correct location, three cores were obtained using [employer] Elevation. The patient received additional local anesthetic during the procedure. A vision clip was inserted into the biopsy cavity. A skin adhesive and a sterile dressing were applied to the access site. Post procedure digital mammographic imaging demonstrates the location device at the targeted area. The specimens were sent to the laboratory for pathological analysis. IMPRESSION: ULTRASOUND GUIDED BIOPSY BENIGN Ultrasound guided biopsy of the 0.7 cm x 0.6 cm x 0.6 cm mass in the left breast at 3 o'clock anterior depth was successful. Pathology indicates benign sclerosing adenosis with calcifications and fibrocystic changes. Pathology results are concordant with imaging findings. A follow-up mammogram and an ultrasound in 6 months is recommended to demonstrate stability. This exam was interpreted at Station ID: [id number]. Jacobo Pineda M.D., Ph.D. [facility]/:07/07/2024 15:44:37
--- NOTE | 2024-06-16 09:09 | DI.MG.S_ITS ---
UNILATERAL RIGHT DIGITAL DIAGNOSTIC MAMMOGRAM 3D/2D - RIGHT BREAST POST-PROCEDURE IMAGING FOR MARKER PLACEMENT: 06/16/2024 CLINICAL: Post right breast ultrasound biopsy, clip placement imaging. Comparison is made to exams dated: 05/31/2024 mammogram - [facility], 03/09/2007 mammogram, 02/08/2006 mammogram, 01/19/2005 mammogram - [facility], and 05/31/2024 ultrasound - [facility]. The breasts are heterogeneously dense, which may obscure small masses (category c / 51-75% glandular tissue). There is a vision marker clip in the appropriate position in the right breast at 9 o'clock middle depth at the biopsy site. IMPRESSION: POST PROCEDURE MAMMOGRAM FOR MARKER PLACEMENT There was a successful vision marker clip placement in the right breast middle depth at the biopsy site. This exam was interpreted at Station ID: [id number]. Electronically Signed By: Jacobo Hernandez M.D. slc/:06/16/2024 11:13:48 ACR BI-RADS Category Post-Procedure Mammogram for Marker Placement
--- NOTE | 2024-06-16 09:09 | DI.MG.S_ITS ---
UNILATERAL LEFT DIGITAL DIAGNOSTIC MAMMOGRAM 3D/2D - LEFT BREAST POST-PROCEDURE IMAGING FOR MARKER PLACEMENT: 06/16/2024 CLINICAL: Post left breast ultrasound biopsy, clip placement imaging. Comparison is made to exams dated: 05/31/2024 mammogram and 05/31/2024 ultrasound - [facility]. The breasts are heterogeneously dense, which may obscure small masses (category c / 51-75% glandular tissue). There is a vision marker clip in the appropriate position in the left breast at 3 o'clock anterior depth at the biopsy site. IMPRESSION: POST PROCEDURE MAMMOGRAM FOR MARKER PLACEMENT There was a successful vision marker clip placement in the left breast anterior depth at the biopsy site. This exam was interpreted at Station ID: [id number]. Electronically Signed By: Jacobo Hernandez M.D. slc/:06/16/2024 11:16:44 ACR BI-RADS Category Post-Procedure Mammogram for Marker Placement
== END ==
PROVIDERS: PCP Family Medicine; Referring Provider Family Medicine; Visit Provider Family Medicine
DX: C50.811 Malignant neoplasm of overlapping sites of right female breast (principal); N60.22 Fibroadenosis of left breast; Z17.0 Estrogen receptor positive status [ER+]
CPT/HCPCS: 19083; 77065

== ENCOUNTER → 2024-11-08 16:45 | Outpatient (CLI) | payer MEDICARE, OTHER, SELFPAY ==
[2021-10-27 10:41] VITALS: BMI 24.0
--- NOTE | 2024-11-08 17:10 | EKG_ITS ---
[address] [address] Test Date: 2024-11-08 Pat Name: Shadi Young Department: [facility] Room: Gender: Female Key Attendant: JONATHON : 1960 Requested By: Order Number: [id number] Reading MD: Vinay Truong MD Measurements Intervals Couch Rate: 110 P: 32 OK: 180 QRS: 5 QRSD: 78 T: 38 QT: 320 QTc: 433 Interpretive Statements Sinus tachycardia Inferior infarct , age undetermined Anterior infarct , age undetermined Electronically Signed On 11-09-2024 7:28:54 PST by Vinay Truong MD
[2024-11-08 17:16] LABS: Add Manual Diff / Slide Review NO; Basophils Absolute Auto 0 /uL (0-100); Basophils Percent Auto 0.6 % (0-2); Eosinophils Absolute Auto 100 /uL (0-450); Eosinophils Percent Auto 1.2 % (2-4); Hematocrit 45.2 % (36-46); Lymphocytes Absolute Auto 1700 /uL (1100-4500); Mean Corpuscular HGB Conc 33.2 % (30-36); Mean Corpuscular Hemoglobin 31.9 PG (26-34); Mean Corpuscular Volume 96.1 fL (80-100); Monocytes Absolute Auto 600 /uL (0-900); Monocytes Percent Auto 9.1 % (3-14); Neutrophils Absolute Auto 3700 /uL (1500-7000); Neutrophils Percent Auto 61.1 % (50-75); Platelet Count 226 X10^3/uL (150-400); Red Cell Distribution Width 16.3 % (11.6-14.8); White Blood Cell Count 6.1 X10^3/uL (4.5-11.0)
[2024-11-08 17:23] LABS: Hemoglobin A1C% w Est Avg Glu < 4.0 % (4.0-6.0)
[2024-11-08 17:27] LABS: INR 1.1 (0.9-1.3); Prothrombin Time 12.4 SECONDS (9.4-12.5)
[2024-11-08 17:50] LABS: Alanine Aminotransferase 9 IU/L (<35); Albumin 3.5 g/dL (3.5-5.0); Alkaline Phosphatase 159 U/L (38-126); Aspartate Aminotransferase 26 IU/L (14-36); BUN Creatinine Ratio 8.8 (6-22); Bilirubin Total 0.6 mg/dL (0.2-1.3); Blood Urea Nitrogen 5 mg/dL (7-17); Calcium 8.9 mg/dL (8.4-10.2); Carbon Dioxide 30 mmol/L (22-32); Chloride 98 mmol/L (98-107); Estimated Glomerular Filt Rate > 60 mL/min (>60); Globulin 3.4 g/dL (1.7-4.1); Glucose 88 mg/dL (80-110); HEMOLYSIS < 15 (0-50); Potassium 4.2 mmol/L (3.4-5.1); Sodium 131 mmol/L (137-145); Total Protein 6.9 g/dL (6.3-8.2)
== END ==
PROVIDERS: PCP Family Medicine; Referring Provider Family Medicine; Visit Provider Family Medicine
DX: Z01.810 Encounter for preprocedural cardiovascular examination (principal); I10 Essential (primary) hypertension; K70.31 Alcoholic cirrhosis of liver with ascites; Z01.812 Encounter for preprocedural laboratory examination; R53.83 Other fatigue; R60.9 Edema, unspecified; D75.89 Other specified diseases of blood and blood-forming organs; K70.10 Alcoholic hepatitis without ascites
CPT/HCPCS: 36415; 80053; 83036; 85025; 85610; 93005